=== PATIENT | male | born 1955 | race African-American/Black ===

== ENCOUNTER 2020-01-07 12:00 | Inpatient (IN) | payer MEDICARE, SELFPAY ==
[2020-01-07] VITALS (36 sets, daily range): BP systolic 91–234; BP diastolic 57–172; PULSE 88–121; RESP 17–37; TEMP 37.9–39.6; O2SAT 91–99; BMI 31.4
--- NOTE | ~2020-01-07 | XR_ITS ---
XR chest 2V DATE: 01/11/2020 11:44 INDICATION: Dyspnea. Coughing up pancreas from left. TECHNIQUE: AP and lateral views COMPARISON: 01/09/2020 portable upright AP chest FINDINGS: Again noted is thoracic aortic endovascular graft, unchanged in appearance compared to 01/08. Rather diffuse patchy left lung infiltrate is noted, particularly in the mid and upper lung zones. Ri ght lung appears essentially clear. No pleural effusion or pulmonary vascular congestion or pneumotho rax is evident. IMPRESSION: Left sided infiltrate, relatively stable since 01/09/2020 Reviewed, dictated and finalized at location A.
--- NOTE | ~2020-01-07 | US_ITS ---
EXAMINATION:US venous doppler LE BI INDICATION:Shortness of breath. TECHNIQUE: Multiple grayscale, color flow and Doppler images of the lower extremity deep venous syste ms were obtained and reviewed. COMPARISON:No prior studies for comparison. FINDINGS: The common femoral, superficial femoral and popliteal veins demonstrate normal respiratory variation, augmentation and compressibility. Color flow is also seen within the posterior tibial, pe roneal, greater saphenous and profunda veins. IMPRESSION: 1: No lower extremity deep venous thrombosis. Reviewed, dictated and finalized at location A.
--- NOTE | ~2020-01-07 | XR_ITS ---
EXAMINATION: XR chest 1V portable INDICATION: Shortness of breath TECHNIQUE: Portable AP chest at 1245 hours COMPARISON: None available FINDINGS: There are airspace opacities of the left upper lung zone. Cardiomegaly is noted. There is a n endovascular stent in the thoracic aorta. No pleural effusion or pneumothorax is identified. IMPRESSION: 1. Left upper lobe airspace opacities, likely pneumonia. Recommend followup radiographs in 10-14 days after appropriate therapy to evaluate for improvement/resolution. Reviewed, dictated and finalized at location A. IMPRESSION: 1. Left upper lobe airspace opacities, likely pneumonia. Recommend followup rad iographs in 10-14 days after appropriate therapy to evaluate for improvement/re solution.
--- NOTE | ~2020-01-07 | NM_ITS ---
EXAMINATION: NM pulmonary perfusion DATE: 01/08/2020 15:56 INDICATION: Shortness of breath, elevated d-dimer TECHNIQUE: 5.11 mCi Tc-99m MAA was administered intravenously for perfusion images. Ventilation imagi ng was not performed due per ACR guidelines during the COVID-19 pandemic. Scintigraphic images of the chest were obtained. COMPARISON: Chest radiograph from yesterday FINDINGS: Perfusion images show a perfusion defect in the left upper lobe corresponding to airspace opacity on the comparison radiograph. ] IMPRESSION: 1. Low probability for pulmonary embolism. Reviewed, dictated and finalized at location A.
--- NOTE | ~2020-01-07 | US_ITS ---
US renal BI 01/08/2020 12:46 Procedure: Realtime transabdominal ultrasound of the kidneys and bladder. Indication: Acute renal insufficiency Comparison: No prior studies for comparison. Findings: Renal echotexture is normal bilaterally without hydronephrosis or renal calculus. There are multiple bilateral renal cysts. Largest on the right measures 6.6 cm and on the left 4.8 cm. The rig ht kidney measures 14.1 cm and left kidney measures 9.3 cm. Bladder within normal limits, although n ot well distended. Impression: 1: Bilateral renal cysts. Reviewed, dictated and finalized at location A. Impression: 1: Bilateral renal cysts.
--- NOTE | ~2020-01-07 | XR_ITS ---
EXAMINATION: XR chest 1V portable EXAM DATE: 01/09/2020 05:48 INDICATION: Pneumonia. TECHNIQUE: Portable AP frontal chest x-ray was obtained. Comparison is made to prior examination from 01/07/2020. FINDINGS: There is been interval progression in left-sided airspace disease with upper lobe predomina nce. Probable development of mild right perihilar acute airspace disease as well. Most likely infecti on given distribution. Cardiac silhouette is enlarged but stable in size compared to prior exam. Ther e is aortic endograft. IMPRESSION: 1. Some progression in now bilateral but left upper lobe predominant acute airspace disease most lik cleopatra infection. Reviewed, dictated and finalized at location A. IMPRESSION: 1. Some progression in now bilateral but left upper lobe predominant acute air space disease most likely infection.
[2020-01-07 12:38] LABS: Basophils Percent Auto 0.1 % (0.2-1.2); Hematocrit 40.2 % (42.0-52.0); Hemoglobin 12.4 g/dL (14.0-18.0); Immature Granulocyte Absolute 0.04 K/mm3 (0.00-0.031); Immature Granulocyte Percent A 0.5 % (0-0.5); Lymphocytes Absolute Auto 0.58 K/mm3 (0.9-3.2); Lymphocytes Percent Auto 6.7 % (18.3-44.2); Mean Corpuscular HGB Conc 30.8 g/dl (32-36); Mean Corpuscular Hemoglobin 28.4 pg (26-34); Mean Corpuscular Volume 92.2 fl (80-100); Mean Platelet Volume 12.4 fl (7.4-10.4); Monocytes Absolute Auto 0.8 K/mm3 (0.1-0.6); Monocytes Percent Auto 9.1 % (2.6-8.5); Neutrophils Absolute Auto 7.2 K/mm3 (1.3-6.7); Neutrophils Percent Auto 83.6 % (45.5-73.1); Platelet Count Result 124 k/mm3 (150-375); Red Blood Count 4.36 M/mm3 (4.6-6.20); Red Cell Distribution Width 13.2 % (11.5-14.5); White Blood Count 8.7 K/mm3 (4.5-10.0)
[2020-01-07 12:49] LABS: INR 1.2; Prothrombin Time 14.4 Seconds (11.1-14.7)
[2020-01-07 12:51] LABS: Blood Urea Nitrogen 29 mg/dL (9-20); Calcium 9.1 mg/dL (8.4-10.2); Carbon Dioxide 24 mmol/L (22-30); Chloride 100 mmol/L (98-107); Estimated CRCL calculation 26 ml/min; Estimated Glomerular Filt Rate 22; Glucose 130 mg/dL (75-110); Potassium 4.8 mmol/L (3.4-5.0); Sodium 133 mmol/L (137-145)
[2020-01-07 13:00] LABS: NT Pro B Type Natriuretic Pept 1180 PG/ML (5-100)
[2020-01-07 13:07] LABS: Troponin I 0.041 ng/mL (0.000-0.034)
--- NOTE | 2020-01-07 13:49 | ECG_ITS ---
Measurements Intervals [place] Rate: 104 P: -17 GA: 188 QRS: 50 QRSD: 86 T: 86 QT: 291 QTc: 384 Interpretive Statements SINUS TACHYCARDIA FREQUENT VENTRICULAR PREMATURE COMPLEXES BORDERLINE R WAVE PROGRESSION, ANTERIOR LEADS BORDERLINE ST-T WAVE ABNORMALITY- LATERAL LEADS ABNORMAL ECG Electronically Signed On 01-07-2020 13:55:23 CDT by Rajiv Castro D.O.
--- NOTE | 2020-01-07 14:20 | ED.SOB ---
HPI - SOB/Dyspnea General Chief Complaint: Shortness of Breath/Dyspnea Stated Complaint: SOB Time Seen by Provider: 01/07/20 12:01 Source: patient Mode of arrival: ambulatory Limitations: no limitations History of Present Illness MD elicited complaint: shortness of breath Pertinent past history: diabetes Severity: mild Exacerbating factors: nothing Known history of: congestive heart failure and diabetes Related Data Home Medications Medication Instructions Recorded Confirmed Adult Low Dose Aspirin 81 mg PO DAILY 01/07/20 01/07/20 Vitamin D3 1,000 units PO DAILY 01/07/20 01/07/20 carvedilol 25 mg PO DAILY 01/07/20 01/07/20 hydrochlorothiazide 25 mg PO DAILY 01/07/20 01/07/20 lisinopril 10 mg PO DAILY 01/07/20 01/07/20 Allergies Allergy/AdvReac Type Severity Reaction Status Date / Time No Known Allergies Allergy Verified 01/07/20 12:27 Review of Systems Review of Systems: All systems reviewed & are unremarkable except as noted in HPI and below Constitutional: Constitutional: Reports no additional constitutional complaints Eyes: Eyes: Reports no additional eye complaints ENT: Reports system reviewed and no additional complaints, except as documented Cardiovascular: Cardiovascular: Reports no additional cardiovascular complaints Respiratory: Respiratory: Reports as per HPI Musculoskeletal: Musculoskeletal: Reports no additional musculoskeletal complaints Neurologic: Reports system reviewed and no additional complaints, except as documented Psychiatric: Psychiatric: Reports no additional psychiatric complaints Endocrine: Endocrine: Reports no additional endocrine complaints [facility] Social History Social History Gender identity (if verbalized by the patient): Male Exam Const: General: no acute distress and alert Orientation/consciousness: patient oriented x3 HENMT: Head: normal to inspection Eyes: Pupils: Equal, round and reactive pupils present Neck: Neck: normal visual inspection Chest: Chest palpation & inspection: normal inspection of the chest Resp: Effort & Inspection: normal respiratory effort GI: GI Palp: Yes Soft to palpation Skin: General skin exam: normal color Neuro: General: patient oriented x3 and moves all extremities Course Course Emergency Course: informed pt about his lab work, i discused with Dr. Lorenz can be discharged to home and follow up in the office.as pt is symptomatic we will admit him to the hospital. Vital Signs Vital signs: Vital Signs Temperature 39.6 C H 01/07/20 12:19 Pulse Rate 110 H 01/07/20 12:19 Respiratory Rate 25 H 01/07/20 12:19 Blood Pressure 106/81 01/07/20 12:19 Pulse Oximetry 97 01/07/20 12:19 Temperature 39.6 C H 01/07/20 12:19 Pulse Rate 98 01/07/20 13:16 Respiratory Rate 26 H 01/07/20 13:16 Blood Pressure 103/69 01/07/20 13:16 Pulse Oximetry 97 01/07/20 13:16 MDM - SOB/Dyspnea Lab Data Result diagrams: 01/07/20 12:32 01/07/20 12:32 Labs: Lab Results 01/07/20 01/07/20 01/07/20 Range/Units 12:32 12:32 12:32 WBC 8.7 (4.5-10.0) K/mm3 RBC 4.36 L (4.6-6.20) M/mm3 Hgb 12.4 L (14.0-18.0) g/dL Hct 40.2 L (42.0-52.0) % MCV 92.2 (80-100) fl MCH 28.4 (26-34) pg MCHC 30.8 L (32-36) g/dl RDW 13.2 (11.5-14.5) % Plt Count 124 L (150-375) k/mm3 MPV 12.4 H (7.4-10.4) fl Immature Gran % (Auto) 0.5 (0-0.5) % Neut % (Auto) 83.6 H (45.5-73.1) % Lymph % (Auto) 6.7 L (18.3-44.2) % Hopkins % (Auto) 9.1 H (2.6-8.5) % Eos % (Auto) 0.0 (0-4.4) % Baso % (Auto) 0.1 L (0.2-1.2) % Lymph # (Auto) 0.58 L (0.9-3.2) K/mm3 Hopkins # (Auto) 0.8 H (0.1-0.6) K/mm3 Eos # (Auto) 0.0 (0-0.3) K/mm3 Baso # (Auto) 0.0 (0.0-0.1) K/mm3 Abs Immat Gran (auto) 0.04 H (0.00-0.031) K/mm3 Absolute Neuts (auto) 7.2 H (1.3-6.7) K/mm3 Absolute Nucleated RBC 0.0 (0.0-0.012) K/mm3 Nucleated RBC
--- NOTE | 2020-01-07 18:46 | ADMGEN ---
This patient, Jude Vasquez Jr., was admitted to Intensive Care Unit-6. Patient/family oriented to hospital policies and general routines including ID bracelet, bed and alarms, visiting hours, pain management, procedures, bathroom and other care routines, personal items, smoking policy, room service/diet, and visiting hours. Valuables list has been completed. Information on how to activate the Rapid Response Team has been discussed. Patient/Family are encouraged to report perceived risks to care and to ask questions if they do not understand what they are told or what they should do.
[2020-01-07] MEDS: ACETAMINOPHEN 325 MG TABLET 650 MG PO (19:57)
--- NOTE | 2020-01-07 20:45 | PM.IMHP ---
H&P: HPI History of Present Illness Chief complaint: Shortness of breath, cough, fever. <Evelia Jiménez PA-C - Last Filed: 01/07/20 23:34> Narrative: Jude Vasquez Jr. is a 64-year-old male with hypertension, chronic kidney disease, anemia, and sleep apnea who presented to the emergency department earlier this afternoon from home for evaluation of shortness of breath, cough, and fever. He has been gradually feeling unwell for the past couple of days including shortness of breath, mainly with activity, cough occasionally productive of pink tinged sputum, nausea, loose stools, myalgias and arthralgias, and fever up to 103? yesterday. He also had some mild chest tightness when feeling short of breath, but that was fleeting and has not returned. He has been taking Tylenol, which does help somewhat. He denies sick contacts and recent travel. He and his have been sheltering in place for the past several weeks, but he does go out to visit his mother on occasion. He denies headache, neck ache, rash, chest pain, pleuritic pain, palpitations, vomiting, and dysuria. No anosmia or dysgeusia. <Evelia Jiménez PA-C - Last Filed: 01/07/20 23:34> Review of Systems Review of Systems: Narrative: Twelve systems were reviewed with pertinent positives and negatives as per HPI. Except as documented, all other systems were reviewed and are negative. <Evelia Jiménez PA-C - Last Filed: 01/07/20 23:34> [facility] Past Medical History Medical History: Medical History (Updated 01/07/20 @ 23:26 by Evelia Jiménez PA-C) Chronic kidney disease, stage 4, severely decreased GFR Patient of Dr. Dixon. Baseline creatinine unknown to the patient. Depression with anxiety Essential hypertension Obstructive sleep apnea treated with BiPAP Posttraumatic stress disorder Thoracic aortic dissection Two thousand five. <Evelia Jiménez PA-C - Last Filed: 01/07/20 23:34> Surgical History Surgical History: Surgical History (Updated 01/07/20 @ 23:23 by Evelia Jiménez PA-C) History of inguinal herniorrhaphy History of thoracic aortic aneurysm repair In 2004. <Evelia Jiménez PA-C - Last Filed: 01/07/20 23:34> Family History Family History: Family History (Updated 01/07/20 @ 23:23 by Evelia Jiménez PA-C) Other Hypertension <Evelia Jiménez PA-C - Last Filed: 01/07/20 23:34> Social History Social History: Social History (Updated 01/07/20 @ 23:24 by Evelia Jiménez PA-C) Social History: Surrogate decision maker: Lizeth Rodriguez, sister. Code status: Full code. Smoking status: Never smoker Alcohol intake: never Substance use: never Additional living arrangements comments: Lives with older sister in [place]. 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 Gender identity (if verbalized by the patient): Male Spiritual care concerns: No Agree to blood products: No <Evelia Jiménez PA-C - Last Filed: 01/07/20 23:34> Meds Home Medications and Allergies Home medications: Home Medications Medication Instructions Recorded Confirmed Type aspirin [Aspirin Low Dose] 81 mg PO DAILY 01/07/20 01/07/20 History carvedilol [Coreg] 25 mg PO Q12H 01/07/20 01/07/20 History cholecalciferol (vitamin D3) 25 mcg PO DAILY 01/07/20 01/07/20 History hydrochlorothiazide 25 mg PO DAILY 01/07/20 01/07/20 History lisinopril 10 mg PO DAILY 01/07/20 01/07/20 History <Evelia Jiménez PA-C - Last Filed: 01/07/20 23:34> Allergies/Adverse reactions: Allergies Allergy/AdvReac Type Severity Reaction Status Date / Time No Known Allergies Allergy Verified 01/07/20 12:27 <Evelia Jiménez PA-C - Last Filed: 01/07/20 23:34> Vital Signs Vital Signs - 24 hr 01/07/20 12:19 01/07/20 12:26 01/07/20 12:41 Temperature 103.3 F H Pulse Rate 110 H 110 H 108 H Respiratory Rate 25 H 25 H Blood Pressure 106/81 Pulse Oximet
[2020-01-07 21:50] LABS: Hemoglobin A1C 5.9 % (<5.7)
[2020-01-07 22:00] LABS: Alanine Aminotransferase 16 U/L (4-50); Alkaline Phosphatase 74 U/L (38-126); Aspartate Amino Transferase 45 U/L (17-59); Bilirubin,Total 0.9 mg/dL (0.2-1.3); Blood Urea Nitrogen 34 mg/dL (9-20); Calcium 8.7 mg/dL (8.4-10.2); Carbon Dioxide 20 mmol/L (22-30); Chloride 101 mmol/L (98-107); Estimated CRCL calculation 25 ml/min; Estimated Glomerular Filt Rate 21; Glucose 134 mg/dL (75-110); Lactate Dehydrogenase 575 U/L (313-618); Magnesium 1.2 mg/dL (1.6-2.3); Potassium 4.7 mmol/L (3.4-5.0); Sodium 133 mmol/L (137-145)
[2020-01-07 22:09] LABS: Troponin I 0.054 ng/mL (0.000-0.034)
[2020-01-07 22:19] LABS: CRP 33.4 mg/dL (<1.0)
[2020-01-08] VITALS (19 sets, daily range): BP systolic 93–165; BP diastolic 41–85; PULSE 80–115; RESP 14–26; TEMP 37.1–38; O2SAT 93–99
[2020-01-08] MEDS: MAGNESIUM SULF 2 GM/WATER 50ML 2 GM/50 ML BAG IVPB (00:10)
[2020-01-08] MEDS: carvediloL 25 MG TABLET PO ×3 (00:10→21:15)
[2020-01-08] MEDS: SODIUM CHLORIDE 0.9% IV 1,000 ML 100 ML IV CONT ×3 (00:11→23:01)
[2020-01-08 01:04] LABS: Influenza Control Positive
[2020-01-08] MEDS: ACETAMINOPHEN 325 MG TABLET 650 MG PO ×3 (02:03→21:16)
[2020-01-08] MEDS: ONDANSETRON INJ 4 MG/2 ML VIAL IV PUSH (02:31)
--- NOTE | 2020-01-08 03:15 | PCRCNOTE ---
non-invasive was not placed in the patient's room at this time.
[2020-01-08 06:14] LABS: Basophils Percent Auto 0.1 % (0.2-1.2); Hematocrit 37.6 % (42.0-52.0); Hemoglobin 11.6 g/dL (14.0-18.0); Immature Granulocyte Absolute 0.07 K/mm3 (0.00-0.031); Immature Granulocyte Percent A 0.7 % (0-0.5); Lymphocytes Absolute Auto 0.51 K/mm3 (0.9-3.2); Lymphocytes Percent Auto 4.9 % (18.3-44.2); Mean Corpuscular HGB Conc 30.9 g/dl (32-36); Mean Corpuscular Hemoglobin 28.2 pg (26-34); Mean Corpuscular Volume 91.5 fl (80-100); Mean Platelet Volume 12.3 fl (7.4-10.4); Monocytes Absolute Auto 0.9 K/mm3 (0.1-0.6); Monocytes Percent Auto 8.5 % (2.6-8.5); Neutrophils Percent Auto 85.8 % (45.5-73.1); Platelet Count Result 115 k/mm3 (150-375); Red Blood Count 4.11 M/mm3 (4.6-6.20); Red Cell Distribution Width 13.3 % (11.5-14.5); White Blood Count 10.5 K/mm3 (4.5-10.0)
[2020-01-08 06:27] LABS: Alanine Aminotransferase 18 U/L (4-50); Alkaline Phosphatase 71 U/L (38-126); Aspartate Amino Transferase 59 U/L (17-59); Bilirubin,Total 0.7 mg/dL (0.2-1.3); Blood Urea Nitrogen 38 mg/dL (9-20); Calcium 8.8 mg/dL (8.4-10.2); Carbon Dioxide 23 mmol/L (22-30); Chloride 100 mmol/L (98-107); Estimated CRCL calculation 25 ml/min; Estimated Glomerular Filt Rate 18; Glucose 127 mg/dL (75-110); Magnesium 1.9 mg/dL (1.6-2.3); Potassium 4.8 mmol/L (3.4-5.0); Sodium 134 mmol/L (137-145)
[2020-01-08] MEDS: HEPARIN SODIUM 5,000 UNITS/ML VIAL 5000 UNITS SUB-Q ×2 (07:53→21:16)
[2020-01-08] MEDS: lisinopriL 10 MG TABLET PO (07:53)
[2020-01-08] MEDS: CHOLECALCIFEROL 1,000 UNIT TABLET 1000 UNITS PO (07:53)
[2020-01-08] MEDS: ASPIRIN 81 MG ENTERIC TABLET PO (07:53)
[2020-01-08 08:02] LABS: Glucose Point of Care 117 (65-105)
[2020-01-08 09:35] LABS: D Dimer 3.96 ug/mL (<0.48)
[2020-01-08 09:53] LABS: Lactate Dehydrogenase 553 U/L (313-618)
[2020-01-08 11:33] LABS: Glucose Point of Care 122 (65-105)
[2020-01-08 13:30] LABS: SARS-CoV-2 RNA PCR Negative
--- NOTE | 2020-01-08 13:50 | PM.CNNEP ---
Assessment and Plan Assessment and plan (1) YOLI (acute kidney injury): Code(s): N17.9 - Acute kidney failure, unspecified Status: Acute (2) Chronic kidney disease, stage IV (severe): Code(s): N18.4 - Chronic kidney disease, stage 4 (severe) Status: Acute (3) Hyponatremia: Code(s): E87.1 - Hypo-osmolality and hyponatremia Status: Acute (4) Community acquired pneumonia: Qualifiers: Laterality: left Lung location: upper lobe of lung Qualified Code(s): J18.9 - Pneumonia, unspecified organism Code(s): J18.9 - Pneumonia, unspecified organism Status: Acute (5) Essential hypertension: Code(s): I10 - Essential (primary) hypertension Status: Acute (6) Obstructive sleep apnea treated with BiPAP: Code(s): G47.33 - Obstructive sleep apnea (adult) (pediatric) Status: Acute Additional Plan Jude has known chronic kidney disease but his kidney function appears to be doing somewhat worse both on admission and by current testing today. One could argue that his admission creatinine may be more a manifestation of disease progression but I cannot deny the fact that given his acute illness, his kidney function could just be worse because of that. In spite of his elevated creatinine, he has no critical electrolyte abnormalities and his volume status appears to be relatively stable. Working on the assumption that this is acute insult on his baseline kidney disease, his high fevers and associated insensible losses coupled with the possibility of covert 19 infection as well as his pneumonia as evidenced by his chest x-ray could of all led to his elevated creatinine/ acute kidney injury. his continued use of hydrochlorothiazide as well as lisinopril may have also potentiated/worsened his kidney function as well. For further evaluation of his acute kidney injury and baseline kidney disease, I will check a renal ultrasound, urine electrolytes, urine eosinophils, and follow the trend of his repeat labs and urine output on the hope that his kidney function will improve with current interventions. I discussed with the patient that given his kidney disease at baseline, it is very possible that his kidney function could worsen to the point may he where he may require renal replacement therapy/dialysis as a temporary measure if not possibly as a long-term intervention pending on his hospital course and other mitigating factors. I will continue follow the patient with you while remains hospitalized make further recommendations during his hospital course. Thank you for allowing me to participate in the care of this patient. History of Present Illness Reason for Consult Consult date: 01/09/20 Reason for consult: acute renal failure (on chronic kidney disease) Chief Complaint Chief complaint: Shortness of breath, cough, fever. History of Present Illness Narrative: The patient is a 64-year-old male with a past medical history as outlined below who presented to the [facility] ER with complaints of shortness of breath, cough, and fever. The patient states that he has been gradually feeling well for the past several days. He relates shortness of breath with exertional activities, productive cough along with nausea, loose stools, myalgias and arthralgias, and fever up to 103? yesterday. He also had some mild chest tightness as well but apparently occurred just one time. He has been taking Tylenol which has helped to some degree. He denies headache, chest pain, pleuritic pain, palpitations, vomiting, and dysuria. It should be noted that he did see his primary care physician for the symptoms as well with concern for possible COVID-19 infection. Workup and evaluation in the emergency room demonstrated the patient to be hemodynamically stable with routine blood test demonstrating essentially a normal CBC and a comprehensive metabolic panel demonstrated an elevated BUN and
--- NOTE | 2020-01-08 14:25 | PC.NURSE ---
This patient, Jude Bustillo ., was received from [ICU-6] on 01/08/20 at 1425. REPORT RECEIVED FROM RENUKA LARSON. Personal belongings list checked and signed. Patient/family oriented to unit policies and routines
[2020-01-08 14:57] LABS: Creatinine Urine 230.8 mg/dL; Total Protein Urine Random 79 mg/dL
[2020-01-08 15:14] LABS: Sodium Urine Random 51 meq/L
[2020-01-08 16:40] LABS: Glucose Point of Care 112 (65-105)
--- NOTE | 2020-01-08 16:53 | PM.IMPN ---
Progress Note: A&P Assessment and Plan (1) Left upper lobe pneumonia: Code(s): J18.9 - Pneumonia, unspecified organism Status: Acute Assessment and Plan: He has been started on azithromycin and ceftriaxone for community-acquired pneumonia. Sputum to be attempted for culture. Send specimens for urinary antigens. Albuterol MDI q.6 hours as needed. Collect swab to rule out influenza and COVID-19. 01/08/20 16:53 Patient is 64-year-old male with history of hypertension chronic kidney disease moderately obesity had been feeling unwell for last 1 week the cough shortness of breath fever and chills with a temperature of 103?, patient denies any sick contact as he had been home with his and occasionally visiting his elderly mother, there was a concern the patient may be positive COVID-19 and test was ordered, he is being treated for the community-acquired pneumonia with Rocephin azithromycin, I saw the patient outside his room and spoke with him on the telephone, he denies any cough shortness of breath chest pain or palpitation currently, denies any fever or chills, (2) Elevated troponin level: Code(s): R79.89 - Other specified abnormal findings of blood chemistry Status: Acute Assessment and Plan: Patient did complain of chest tightness, but may be related to above. Given his medical history, will continue to trend troponins. Will hold on Cardiology consultation, unless troponins elevate. Echocardiogram ordered. Tropes are mildly elevated most likely secondary to demand ischemia due to fever and shortness of breath unlikely acute coronary syndrome it present time patient denies any chest. (3) Hyponatremia: Code(s): E87.1 - Hypo-osmolality and hyponatremia Status: Acute Assessment and Plan: Mild hyponatremia with sodium of 133 on admission. Blood pressures are a bit low, arguing that he may be dehydrated. Will hold hydrochlorothiazide and cautiously rehydrate. Patient is clinically stable does not show any sinus symptoms of hyponatremia patient is seen by validation analyst further recommendation to follow (4) Essential hypertension: Code(s): I10 - Essential (primary) hypertension Status: Acute Assessment and Plan: Blood pressures were reviewed, and they have been running a bit soft. As above, hold hydrochlorothiazide. Continue carvedilol and lisinopril, with parameters. (5) Obstructive sleep apnea treated with BiPAP: Code(s): G47.33 - Obstructive sleep apnea (adult) (pediatric) Status: Acute Assessment and Plan: BiPAP ordered. (6) Chronic kidney disease, stage 4, severely decreased GFR: Code(s): N18.4 - Chronic kidney disease, stage 4 (severe) Status: Acute Assessment and Plan: Reports history of stage 4 kidney disease, with unknown baseline creatinine. Obtain records for review, and monitor. Monitor strict I/O. Patient with history of chronic kidney disease stage IV discussed with validation analyst further workup is in progress (7) Elevated d-dimer: Code(s): R79.89 - Other specified abnormal findings of blood chemistry Status: Acute Assessment and Plan: Patient with complaint of shortness of breath with elevated D-dimer unable to do CTA of the chest, ventilation/ perfusion scan shows low probability lower extremity Doppler are negative for DVT, most likely related to chronic kidney disease and inflammation patient is clinically stable Subjective Date/time seen: 01/08/20 16:53 Patient is 64-year-old male with history of hypertension chronic kidney disease moderately obesity had been feeling unwell for last 1 week the cough shortness of breath fever and chills with a temperature of 103?, patient denies any sick contact as he had been home with his and occasionally visiting his elderly mother, there was a concern the patient may be positive COVID-19 and test was ordered,
[2020-01-08 20:13] LABS: Glucose Point of Care 127 (65-105)
--- NOTE | 2020-01-08 23:27 | ECHO_ITS ---
Patient Info Name: Jude Vasquez Age: 64 years : 1955 Gender: Male Ht: 74 in Wt: 244 lbs BSA: 2.43 m2 HR: 72 bpm BP: 95 / 68 mmHg Technical Quality: Fair Exam Date: 01/08/2020 9:46 AM Exam Location: [facility] Pulmonary Patient Status: Inpatient Admit Date: 01/07/2020 Staff Ordering Physician: Evelia Jiménez PA-C [employer] Dba: Foster Aponte RDCS, RT Attending Provider: Alli Hicks MD Referring Physician: Jessy PERRY; Exam Type: CA echo doppler color flow Study Info Indications R07.1 - Chest pain on breathing Complete two-dimensional, color flow and Doppler transthoracic echocardiogram is performed. Summary 1. Left ventricular chamber dimension is mildly enlarged. 2. Left ventricular systolic function is normal, estimated at 60-65%. 3. There is mildly increased left ventricular wall thickness. 4. The left ventricular diastolic function is abnormal. 5. E/e' 13 is mildly elevated. 6. Left atrial chamber dimension is mildly enlarged. 7. The mitral valve has moderately calcified annulus. 8. The aortic root size at the sinus of Valsalva is mildly dilated at 4.3 cm. Left Ventricle E/e' 13 is mildly elevated. Left ventricular chamber dimension is mildly enlarged. Left ventricular systolic function is normal, estimated at 60-65%. There is mildly increased left ventricular wall thickness. The left ventricular diastolic function is abnormal. Right Ventricle Right ventricular chamber dimension is normal. Right ventricular systolic function is normal. Left Atria Left atrial chamber dimension is mildly enlarged. Right Atria Right atrial chamber dimension is normal. Aortic Valve The aortic valve is trileaflet. There is no aortic valve stenosis. There is no aortic valve regurgitation. Pulmonic Valve There is no pulmonic regurgitation. Mitral Valve The mitral valve has moderately calcified annulus. There is no mitral valve stenosis. There is no mitral valve regurgitation. Tricuspid Valve There is no tricuspid valve regurgitation. Pericardium/Pleural There is no pericardial effusion. Inferior Vena Cava Normal inferior vena cava with >50% collapse upon inspiration consistent with normal right atrial pressure, 5 mmHg. Aorta The aortic root size at the sinus of Valsalva is mildly dilated at 4.3 cm. Left Ventricular Outflow Tract Name Value Normal LVOT 2D LVOT Diameter 2.1 cm LVOT Doppler LVOT Peak Gradient 5 mmHg LVOT Mean Gradient 2 mmHg LVOT VTI 19 cm LVOT VTI/AV VTI Ratio 0.8 LVOT Stroke Volume 66 ml LVOT CO 5.8 l/min LVOT CI 2.4 l/min/m2 Mitral Valve Name Value Normal MV Doppler MV Decel
[2020-01-09] VITALS (16 sets, daily range): BP systolic 85–140; BP diastolic 43–88; PULSE 48–102; RESP 20–28; TEMP 36.4–38.1; O2SAT 92–98
[2020-01-09 04:55] LABS: Basophils Percent Auto 0.2 % (0.2-1.2); Hematocrit 34.8 % (42.0-52.0); Hemoglobin 10.5 g/dL (14.0-18.0); Immature Granulocyte Absolute 0.03 K/mm3 (0.00-0.031); Immature Granulocyte Percent A 0.5 % (0-0.5); Lymphocytes Absolute Auto 0.44 K/mm3 (0.9-3.2); Lymphocytes Percent Auto 7.2 % (18.3-44.2); Mean Corpuscular HGB Conc 30.2 g/dl (32-36); Mean Corpuscular Hemoglobin 28.3 pg (26-34); Mean Corpuscular Volume 93.8 fl (80-100); Mean Platelet Volume 12.1 fl (7.4-10.4); Monocytes Absolute Auto 0.7 K/mm3 (0.1-0.6); Monocytes Percent Auto 11.2 % (2.6-8.5); Neutrophils Absolute Auto 4.9 K/mm3 (1.3-6.7); Neutrophils Percent Auto 80.9 % (45.5-73.1); Platelet Count Result 105 k/mm3 (150-375); Red Blood Count 3.71 M/mm3 (4.6-6.20); Red Cell Distribution Width 13.4 % (11.5-14.5); White Blood Count 6.1 K/mm3 (4.5-10.0)
[2020-01-09 05:13] LABS: Alanine Aminotransferase 27 U/L (4-50); Albumin Level 3.4 g/dL (3.5-5.1); Alkaline Phosphatase 61 U/L (38-126); Aspartate Amino Transferase 81 U/L (17-59); Bilirubin,Total 0.7 mg/dL (0.2-1.3); Blood Urea Nitrogen 45 mg/dL (9-20); Carbon Dioxide 24 mmol/L (22-30); Chloride 99 mmol/L (98-107); Estimated CRCL calculation 22 ml/min; Estimated Glomerular Filt Rate 15; Glucose 98 mg/dL (75-110); Potassium 4.4 mmol/L (3.4-5.0); Sodium 135 mmol/L (137-145)
[2020-01-09 05:17] LABS: Complement C3 113 mg/dL (88-165)
[2020-01-09 06:12] LABS: Hepatitis B Surface Antigen Negative (Negative)
[2020-01-09 06:18] LABS: HAV RESULT Negative (Negative); Hepatitis B Core IgM Result Negative (Negative)
[2020-01-09 06:29] LABS: Hepatitis B Surface Anti Res Negative; Hepatitis C Virus Antibody Negative (Negative)
[2020-01-09] MEDS: carvediloL 25 MG TABLET PO ×2 (08:26→21:49)
[2020-01-09] MEDS: lisinopriL 10 MG TABLET PO (08:26)
[2020-01-09] MEDS: CHOLECALCIFEROL 1,000 UNIT TABLET 1000 UNITS PO (08:26)
[2020-01-09] MEDS: ASPIRIN 81 MG ENTERIC TABLET PO (08:26)
[2020-01-09] MEDS: HEPARIN SODIUM 5,000 UNITS/ML VIAL 5000 UNITS SUB-Q ×2 (08:27→21:49)
[2020-01-09 08:43] LABS: Glucose Point of Care 103 (65-105)
--- NOTE | 2020-01-09 10:01 | PM.IMPN ---
Progress Note: A&P Assessment and Plan (1) Left upper lobe pneumonia: Qualifiers: Pneumonia type: due to unspecified organism Qualified Code(s): J18.9 - Pneumonia, unspecified organism Code(s): J18.9 - Pneumonia, unspecified organism Status: Acute Assessment and Plan: Continue ceftriaxone and azithromycin day 2 COVID-19 rt-PCR NEGATIVE 01/08 Oxygen 1 LPM by NC 01/08 to medical floor (2) Elevated troponin level: Code(s): R79.89 - Other specified abnormal findings of blood chemistry Status: Acute Assessment and Plan: Likely due to pneumonia Flat response Echo with EF 60-65% w/o wall motion abnormalities (3) Hyponatremia: Code(s): E87.1 - Hypo-osmolality and hyponatremia Status: Acute Assessment and Plan: 01/06 133 --> 01/08 135 Holding HCTZ 01/08 d/c IVF (4) Essential hypertension: Code(s): I10 - Essential (primary) hypertension Status: Acute Assessment and Plan: Continue carvedilol and lisinopril (5) Obstructive sleep apnea treated with BiPAP: Code(s): G47.33 - Obstructive sleep apnea (adult) (pediatric) Status: Acute Assessment and Plan: BiPAP while sleeping (6) Chronic kidney disease, stage 4, severely decreased GFR: Code(s): N18.4 - Chronic kidney disease, stage 4 (severe) Status: Acute Assessment and Plan: Creatinine 01/06 3.4 --> 01/08 4.7 Likely due to infection, possible volume depletion at admission F/u lab (7) Elevated d-dimer: Code(s): R79.89 - Other specified abnormal findings of blood chemistry Status: Acute Assessment and Plan: Negative LE venous dopplers Low probability V/Q scan Subjective Date/time seen: 01/09/20 10:01 Interval history: Admitted 01/06 with pneumonia and hypoxia. 01/08 No sob at rest. OSCAR persists. Tolerating diet. Some loose stool. No bleeding. Denied pain. Denied edema. Denied c/o. Review of Systems Review of Systems: All systems reviewed & are unremarkable except as noted in HPI and below Exam Narrative: Exam Narrative: HEENT: EOMI, PERRL, sclerae nonicteric, pharyngeal mucosa pink and intact NECK: No JVD CHEST: Slightly course BS. Mildly tachypneic. HEART: NL S1/S2, regular, no murmur ABDOMEN: BS+, soft, nontender, no mass, no bruits EXTREMITIES: No cyanosis, edema, or clubbing NEUROLOGIC: CN intact and symmetric to inspection. MUSCULOSKELETAL: Tone and strength symmetric. PSYCH: Alert. Oriented to person, place, and time. Objective Data Vital Signs Vital Signs: Vital Signs - 24 hr 01/08/20 12:00 01/08/20 13:47 01/08/20 16:00 Temperature 99.3 F Pulse Rate 100 100 98 Respiratory Rate 26 H 14 Blood Pressure 147/85 H 127/41 L Pulse Oximetry 94 93 01/08/20 18:00 01/08/20 19:34 01/08/20 20:00 Temperature 98.7 F Pulse Rate 115 H 108 H 108 H Respiratory Rate 22 H 22 H Blood Pressure 165/79 H Pulse Oximetry 99 99 01/08/20 21:15 01/08/20 22:00 01/08/20 23:28 Temperature Pulse Rate 100 91 88 Respiratory Rate 18 Blood Pressure Pulse Oximetry 93 01/09/20 00:00 01/09/20 02:00 01/09/20 04:00 Temperature 97.5 F L 98.8 F Pulse Rate 82 80 83 Respiratory Rate 22 H 20 Blood Pressure 97/58 L 115/60 Pulse Oximetry 93 96 01/09/20 06:00 01/09/20 08:00 01/09/20 08:26 Temperature 99.3 F Pulse Rate 91 102 H 97 Respiratory Rate 20 Blood Pressure 105/88 Pulse Oximetry 96 01/09/20 09:53 Temperature 100.1 F H Pulse Rate Respiratory Rate Blood Pressure Pulse Oximetry Intake/Output Intake/Output: Intake & Output 01/06/20 01/07/20 01/08/20 01/09/20 23:59 23:59 23:59 23:59 Intake Total 50 3590 700 Output Total 1025 300 Balance 50 2565 400 Meds/Results Medications: Active Medications Generic Name Dose Route Start Last Admin Trade Name Freq PRN Reason Stop Dose Admin Acetaminophen 650 mg 01/07/20 15:1
--- NOTE | 2020-01-09 11:09 | PC.NURSE ---
Pt transferred to room 326 via WC. Bedside report given to kirby LARSON. Belongings sent with pt.
--- NOTE | 2020-01-09 11:12 | PM.PNNEP ---
Progress Note: A&P Assessment and Plan (1) YOLI (acute kidney injury): Code(s): N17.9 - Acute kidney failure, unspecified Status: Acute Assessment and Plan: suspect due to: - acute infection (pneumonia) - prerenal factors -- urine electrolytes suggest volume depletion -- insensible losses from high fevers - ongoing use of BRITTNEE-I + HCTZ prior to admission renal ultrasound with kidney assymetry and bilateral cysts - component/degree of acquired cystic kidney(?) still making urine and no critical electroltyes continue supportive therapy (2) Chronic kidney disease, stage IV (severe): Code(s): N18.4 - Chronic kidney disease, stage 4 (severe) Status: Chronic Assessment and Plan: baseline creatinine ~ 2.5 - 2.8mg/dl presumably due to diabetes, hypertension, IRINA, and age follow-up on pending serologies (3) Hyponatremia: Code(s): E87.1 - Hypo-osmolality and hyponatremia Status: Acute Assessment and Plan: resolving probably due to volume depletion on top of YOLI/ARF follow trend of sodium (4) Community acquired pneumonia: Qualifiers: Laterality: left Lung location: upper lobe of lung Qualified Code(s): J18.9 - Pneumonia, unspecified organism Code(s): J18.9 - Pneumonia, unspecified organism Status: Acute Assessment and Plan: on antibiotics follow culture data and temperature curve (5) Essential hypertension: Code(s): I10 - Essential (primary) hypertension Status: Acute Assessment and Plan: reasonable control holding BRITTNEE-I and HCTZ at this time follow trend of hemodynamics Will continue to follow. Subjective Date/time seen: 01/09/20 11:12 Moved out of isolation as COVID-19 testing negative; still making urine and creatinine still elevated; he otherwise feels significantly better since admission; no apparent distress voiced at the time of my visit. Exam Narrative: Exam Narrative: General: WD/WN AA male in NAD Heart: normal S1 and S2; no rub Lungs: clear to auscultation Abdomen: soft, nontender, nondistended, positive bowel sounds Extremities: no cyanosis or clubbing; no edema Skin: warm and dry Objective Data Vital Signs Vital Signs: Vital Signs Temp Pulse Resp BP Pulse Ox 01/09/20 09:53 37.8 C H 01/09/20 08:26 97 01/09/20 08:00 37.4 C 97 20 105/88 96 01/09/20 06:00 91 01/09/20 04:00 37.1 C 83 20 115/60 96 01/09/20 02:00 80 01/09/20 00:00 36.4 C L 82 22 H 97/58 L 93 01/08/20 23:28 88 18 93 01/08/20 22:00 91 01/08/20 21:15 100 01/08/20 20:00 108 H 22 H 99 01/08/20 19:34 37.1 C 108 H 22 H 165/79 H 99 01/08/20 18:00 115 H 01/08/20 16:00 37.4 C 98 14 127/41 L 93 01/08/20 13:47 100 01/08/20 12:00 100 26 H 147/85 H 94 Intake/Output Intake/Output: Intake & Output 01/06/20 01/07/20 01/08/20 01/09/20 23:59 23:59 23:59 23:59 Intake Total 50 3590 820 Output Total 1025 300 Balance 50 2565 520 Meds/Results Medications: Active Medications Generic Name Dose Route Start Last Admin Trade Name Freq PRN Reason Stop Dose Admin Acetaminophen 650 mg 01/07/20 15:19 01/08/20 21:16 Tylenol Tablet PO 650 mg Q4H PRN Administration Mild Pain (1-3) or Fever Albuterol 2 puff 01/07/20 23:27 Proventil Hfa INHALATION QIDRT PRN Shortness Of Breath Aspirin 81 mg 01/08/20 09:00 01/09/20 08:26 Aspirin Ec PO 81 mg DAILY CLARITZA Administration Carvedilol 25 mg 01/07/20 23:35 01/09/20 08:26 Coreg PO 25 mg Q12HR CLARITZA Administration Heparin Sodium (Porcine) 5,000 units 01/08/20 09:00 01/09/20 08:27 Heparin Sodium SUB-Q 5,000 units Q12HR CLARITZA Administration Azithromycin 500 mg in 250 mls @ 250 mls/hr 01/07/20 23:35 01/08/20 22:20 Zithromax IVPB Infused DAILY@2200 [facility] Infusion Ceftr
[2020-01-09] MEDS: ALBUTEROL SULFATE (*SP) AEROSOL 1 PUFF 2 PUFF INHALATION (11:16)
--- NOTE | 2020-01-09 11:43 | PC.NURSE ---
Took over pt care from IMU at 1100. Pt is resting comfortably in room 326.
[2020-01-09 12:03] LABS: Glucose Point of Care 125 (65-105)
[2020-01-09 14:50] LABS: Pneumococcal Antigen Urine Not Detected (Not Detected)
[2020-01-09 18:21] LABS: Glucose Point of Care 99 (65-105)
[2020-01-09 19:03] LABS: Glucose Point of Care 115 (65-105)
--- NOTE | 2020-01-09 19:08 | ECG_ITS ---
Measurements Intervals [place] Rate: 87 P: 25 DC: 191 QRS: 56 QRSD: 94 T: 89 QT: 331 QTc: 399 Interpretive Statements SINUS RHYTHM DELAYED PRECORDIAL R/S TRANSITION LOW VOLTAGE- LIMB LEADS BORDERLINE T WAVE ABNORMALITY- LATERAL LEADS BASELINE ARTIFACT- I, III, AVR, AVL, AVF, V1-V2 BORDERLINE ECG Electronically Signed On 01-11-2020 10:57:15 CDT by Rajiv Castro D.O.
--- NOTE | 2020-01-09 19:26 | PC.NURSE ---
Sharita and Cynthia were attempting to restart an IV (at 1900) as his previous had been pulled out when pt became less responsive, felt clammy, stating he felt very out of it. Pts VS were 85/57 left arm supine, 94% on 4L 02, 87 heart rate, resps 24, temp 100.4; blood sugar 115. ICU RNs responded along with Jacklyn. Stat EKG and ABGs ordered. No transfer ordered at this time. Pt began to come back to himself, stating he felt more normal. Fahad said he wanted results called to him or Yojana. Also ordered pt on CPAP after blood gasses drown.
[2020-01-09 19:39] LABS: Alveolar/Arterial O2 Gradient 122.9 mmHg; Base Excess ABG -4.1 mEq/l (+/-2.0); Fractional Inspired Oxygen 36 %; HCO3 ABG 21.1 mEq/l (22.0-26.0); Oxygen Content ABG 15.9 %vol (16.0-22.0); Oxygen Saturation ABG 96.4 % (95.0-100.0); Oxyhemoglobin 95.4 % THb (90.0-100.0); PCO2 ABG 39.2 mmHg (35.0-45.0); PO2 ABG 88.3 mmHg (80.0-100.0); PO2 FiO2 Ratio Arterial Blood 2.45 %; Total Hemoglobin 11.8 g/dL (12.0-18.0); pH ABG 7.349 (7.350-7.450)
[2020-01-09 19:40] LABS: Device NASAL CANNULA; Modified Allen's Test Pass; Site Drawn RIGHT RADIAL
--- NOTE | 2020-01-09 19:43 | PC.NURSE ---
Addendum to Rapid Response, 1909 BP was 120/60
[2020-01-09 22:09] LABS: Glucose Point of Care 94 (65-105)
[2020-01-10] VITALS (9 sets, daily range): BP systolic 112–140; BP diastolic 68–90; PULSE 66–80; RESP 20–26; TEMP 36.6–37.4; O2SAT 93–100
[2020-01-10 06:13] LABS: Basophils Percent Auto 0.2 % (0.2-1.2); Eosinophils Percent Auto 0.5 % (0-4.4); Hematocrit 33.9 % (42.0-52.0); Hemoglobin 10.3 g/dL (14.0-18.0); Immature Granulocyte Absolute 0.02 K/mm3 (0.00-0.031); Immature Granulocyte Percent A 0.5 % (0-0.5); Lymphocytes Percent Auto 12.4 % (18.3-44.2); Mean Corpuscular HGB Conc 30.4 g/dl (32-36); Mean Corpuscular Hemoglobin 28.5 pg (26-34); Mean Corpuscular Volume 93.6 fl (80-100); Mean Platelet Volume 12.5 fl (7.4-10.4); Monocytes Absolute Auto 0.8 K/mm3 (0.1-0.6); Monocytes Percent Auto 18.9 % (2.6-8.5); Neutrophils Absolute Auto 2.7 K/mm3 (1.3-6.7); Neutrophils Percent Auto 67.5 % (45.5-73.1); Platelet Count Result 113 k/mm3 (150-375); Red Blood Count 3.62 M/mm3 (4.6-6.20); Red Cell Distribution Width 13.4 % (11.5-14.5)
[2020-01-10 06:33] LABS: Alanine Aminotransferase 34 U/L (4-50); Albumin Level 3.4 g/dL (3.5-5.1); Alkaline Phosphatase 57 U/L (38-126); Aspartate Amino Transferase 73 U/L (17-59); Bilirubin,Total 0.4 mg/dL (0.2-1.3); Blood Urea Nitrogen 54 mg/dL (9-20); Calcium 8.3 mg/dL (8.4-10.2); Carbon Dioxide 24 mmol/L (22-30); Chloride 98 mmol/L (98-107); Estimated CRCL calculation 25 ml/min; Estimated Glomerular Filt Rate 17; Glucose 135 mg/dL (75-110); Potassium 4.4 mmol/L (3.4-5.0); Sodium 132 mmol/L (137-145)
[2020-01-10] MEDS: carvediloL 25 MG TABLET PO ×2 (09:09→20:40)
[2020-01-10] MEDS: CHOLECALCIFEROL 1,000 UNIT TABLET 1000 UNITS PO (09:09)
[2020-01-10] MEDS: ASPIRIN 81 MG ENTERIC TABLET PO (09:09)
[2020-01-10] MEDS: HEPARIN SODIUM 5,000 UNITS/ML VIAL 5000 UNITS SUB-Q ×2 (09:10→20:39)
[2020-01-10 10:03] LABS: Glucose Point of Care 116 (65-105)
--- NOTE | 2020-01-10 10:59 | PM.IMPN ---
Progress Note: A&P Assessment and Plan (1) Left upper lobe pneumonia: Qualifiers: Pneumonia type: due to unspecified organism Qualified Code(s): J18.9 - Pneumonia, unspecified organism Code(s): J18.9 - Pneumonia, unspecified organism Status: Acute Assessment and Plan: Continue ceftriaxone and azithromycin day 2 COVID-19 rt-PCR NEGATIVE 01/08 Oxygen 1 LPM by NC 01/08 to medical floor (2) Elevated troponin level: Code(s): R79.89 - Other specified abnormal findings of blood chemistry Status: Acute Assessment and Plan: Likely due to pneumonia Flat response Echo with EF 60-65% w/o wall motion abnormalities (3) Hyponatremia: Code(s): E87.1 - Hypo-osmolality and hyponatremia Status: Acute Assessment and Plan: 01/06 133 --> 01/09 132 Holding HCTZ 01/08 d/c'd IVF (4) Essential hypertension: Code(s): I10 - Essential (primary) hypertension Status: Acute Assessment and Plan: Continue carvedilol and lisinopril (5) Obstructive sleep apnea treated with BiPAP: Code(s): G47.33 - Obstructive sleep apnea (adult) (pediatric) Status: Acute Assessment and Plan: BiPAP while sleeping (6) Chronic kidney disease, stage 4, severely decreased GFR: Code(s): N18.4 - Chronic kidney disease, stage 4 (severe) Status: Acute Assessment and Plan: Creatinine 01/06 3.4 --> 01/08 4.7 --> 01/09 4.2 Likely due to infection, possible volume depletion at admission Seems to have peaked Continue to follow trend (7) Elevated d-dimer: Code(s): R79.89 - Other specified abnormal findings of blood chemistry Status: Acute Assessment and Plan: Negative LE venous dopplers Low probability V/Q scan Subjective Date/time seen: 01/10/20 10:59 Interval history: Admitted 01/06 with pneumonia and hypoxia. 01/08 about 18:57 rapid response due to brief altered mental status after napping without bipap. EKG and ABG unremarkable. No further episodes. 01/09 No sob at rest. OSCAR persists. Tolerating diet. Some loose stool. No bleeding. Denied pain. Denied edema. Denied c/o. Review of Systems Review of Systems: All systems reviewed & are unremarkable except as noted in HPI and below Exam Narrative: Exam Narrative: HEENT: EOMI, PERRL, sclerae nonicteric, pharyngeal mucosa pink and intact NECK: No JVD CHEST: Slightly course BS. Mildly tachypneic. HEART: NL S1/S2, regular, no murmur ABDOMEN: BS+, soft, nontender, no mass, no bruits EXTREMITIES: No cyanosis, edema, or clubbing NEUROLOGIC: CN intact and symmetric to inspection. MUSCULOSKELETAL: Tone and strength symmetric. PSYCH: Alert. Oriented to person, place, and time. Objective Data Vital Signs Vital Signs: Vital Signs - 24 hr 01/09/20 11:19 01/09/20 13:25 01/09/20 15:11 Temperature 100.5 F H 99.6 F Pulse Rate 76 48 L Respiratory Rate 22 H 26 H Blood Pressure 131/72 94/43 L Pulse Oximetry 92 94 94 01/09/20 16:00 01/09/20 19:15 01/09/20 19:40 Temperature 99.8 F H 100.4 F H Pulse Rate 56 L 87 Respiratory Rate 22 H 28 H 24 H Blood Pressure 110/68 120/60 85/57 L Pulse Oximetry 94 94 94 01/09/20 20:29 01/09/20 21:49 01/09/20 22:31 Temperature 98.7 F Pulse Rate 67 102 H 68 Respiratory Rate 23 H 20 Blood Pressure 140/78 Pulse Oximetry 97 98 01/10/20 03:56 01/10/20 06:00 Temperature 98.7 F 98.3 F Pulse Rate 80 77 Respiratory Rate 20 20 Blood Pressure 115/70 117/72 Pulse Oximetry 98 97 Intake/Output Intake/Output: Intake & Output 01/07/20 01/08/20 01/09/20 01/10/20 23:59 23:59 23:59 23:59 Intake Total 50 3590 1560 600 Output Total 1025 700 400 Balance 50 2565 860 200 Meds/Results Medications: Active Medications Generic Name Dose Route Start Last Admin Trade Name Freq PRN Reason Stop Dose Admin Acetaminophen 650 mg 01/07/20 15:19 01/08/20 21:16 Tylenol Tablet PO 650
[2020-01-10 13:01] LABS: Glucose Point of Care 97 (65-105)
--- NOTE | 2020-01-10 14:35 | PM.PNNEP ---
Progress Note: A&P Assessment and Plan (1) YOLI (acute kidney injury): Code(s): N17.9 - Acute kidney failure, unspecified Status: Acute Assessment and Plan: suspect due to: - acute infection (pneumonia) - prerenal factors -- urine electrolytes suggest volume depletion -- insensible losses from high fevers - ongoing use of BRITTNEE-I + HCTZ prior to admission renal ultrasound with kidney assymetry and bilateral cysts - component/degree of acquired cystic kidney(?) still making urine and no critical electroltyes creatinine better -- possible peak/plateau yesterday(?) continue supportive therapy (2) Chronic kidney disease, stage IV (severe): Code(s): N18.4 - Chronic kidney disease, stage 4 (severe) Status: Chronic Assessment and Plan: baseline creatinine ~ 2.5 - 2.8mg/dl presumably due to diabetes, hypertension, IRINA, and age follow-up on pending serologies (3) Hyponatremia: Code(s): E87.1 - Hypo-osmolality and hyponatremia Status: Acute Assessment and Plan: resolving if not stable probably due to volume depletion on top of YOLI/ARF cannot discount HCTZ use as outpatient may have played a role follow trend of sodium (4) Community acquired pneumonia: Qualifiers: Laterality: left Lung location: upper lobe of lung Qualified Code(s): J18.9 - Pneumonia, unspecified organism Code(s): J18.9 - Pneumonia, unspecified organism Status: Acute Assessment and Plan: on antibiotics follow culture data and temperature curve (5) Essential hypertension: Code(s): I10 - Essential (primary) hypertension Status: Acute Assessment and Plan: reasonable control holding BRITTNEE-I and HCTZ at this time follow trend of hemodynamics Will continue to follow. Subjective Date/time seen: 01/10/20 14:35 Continues to do reasonably well; no apparent distress voiced at the time of my visit; eating and drinking reasonably well; no issues or problems overnight or this AM. Exam Narrative: Exam Narrative: General: WD/WN AA male in NAD Heart: normal S1 and S2; no rub Lungs: clear to auscultation Abdomen: soft, nontender, nondistended, positive bowel sounds Extremities: no cyanosis or clubbing; no edema Skin: warm and intaact Objective Data Vital Signs Vital Signs: Vital Signs Temp Pulse Resp BP Pulse Ox 01/10/20 12:18 93 01/10/20 10:00 37.0 C 75 24 H 112/68 99 01/10/20 06:00 36.8 C 77 20 117/72 97 01/10/20 03:56 37.1 C 80 20 115/70 98 01/09/20 22:31 37.1 C 68 20 140/78 98 01/09/20 21:49 102 H 01/09/20 20:29 67 23 H 97 01/09/20 19:40 38.0 C H 87 24 H 85/57 L 94 01/09/20 19:15 28 H 120/60 94 01/09/20 16:00 37.7 C H 56 L 22 H 110/68 94 01/09/20 15:11 37.6 C 48 L 26 H 94/43 L 94 Intake/Output Intake/Output: Intake & Output 01/07/20 01/08/20 01/09/20 01/10/20 23:59 23:59 23:59 23:59 Intake Total 50 3590 1560 600 Output Total 1025 700 400 Balance 50 2565 860 200 Meds/Results Medications: Active Medications Generic Name Dose Route Start Last Admin Trade Name Freq PRN Reason Stop Dose Admin Acetaminophen 650 mg 01/07/20 15:19 01/08/20 21:16 Tylenol Tablet PO 650 mg Q4H PRN Administration Mild Pain (1-3) or Fever Albuterol 2 puff 01/07/20 23:27 01/09/20 11:16 Proventil Hfa INHALATION 2 puff QIDRT PRN Administration Shortness Of Breath Aspirin 81 mg 01/08/20 09:00 01/10/20 09:09 Aspirin Ec PO 81 mg DAILY CLARITZA Administration Carvedilol 25 mg 01/07/20 23:35 01/10/20 09:09 Coreg PO 25 mg Q12HR CLARITZA Administration Heparin Sodium (Porcine) 5,000 units 01/08/20 09:00 01/10/20 09:10 Heparin Sodium SUB-Q 5,000 units Q12HR CLARITZA Administration Azithromycin 500 mg in 250 mls @ 250 mls/hr 01/07/20 23:35 01/09/20 22:49 Zithromax IVPB Infus
[2020-01-10 17:32] LABS: Glucose Point of Care 112 (65-105)
[2020-01-10 21:22] LABS: Glucose Point of Care 121 (65-105)
[2020-01-11] VITALS (10 sets, daily range): BP systolic 106–135; BP diastolic 58–89; PULSE 65–84; RESP 17–25; TEMP 36.3–37.3; O2SAT 90–99
[2020-01-11 05:59] LABS: Basophils Percent Auto 0.3 % (0.2-1.2); Eosinophils Absolute Auto 0.1 K/mm3 (0-0.3); Eosinophils Percent Auto 1.9 % (0-4.4); Hematocrit 34.2 % (42.0-52.0); Hemoglobin 10.3 g/dL (14.0-18.0); Immature Granulocyte Absolute 0.02 K/mm3 (0.00-0.031); Immature Granulocyte Percent A 0.5 % (0-0.5); Lymphocytes Percent Auto 13.4 % (18.3-44.2); Mean Corpuscular HGB Conc 30.1 g/dl (32-36); Mean Corpuscular Hemoglobin 28.1 pg (26-34); Mean Corpuscular Volume 93.4 fl (80-100); Mean Platelet Volume 11.9 fl (7.4-10.4); Monocytes Absolute Auto 0.9 K/mm3 (0.1-0.6); Neutrophils Absolute Auto 2.3 K/mm3 (1.3-6.7); Neutrophils Percent Auto 60.9 % (45.5-73.1); Platelet Count Result 120 k/mm3 (150-375); Red Blood Count 3.66 M/mm3 (4.6-6.20); Red Cell Distribution Width 13.2 % (11.5-14.5); White Blood Count 3.7 K/mm3 (4.5-10.0)
[2020-01-11 06:08] LABS: Alanine Aminotransferase 34 U/L (4-50); Albumin Level 3.3 g/dL (3.5-5.1); Alkaline Phosphatase 59 U/L (38-126); Aspartate Amino Transferase 56 U/L (17-59); Bilirubin,Total 0.4 mg/dL (0.2-1.3); Blood Urea Nitrogen 56 mg/dL (9-20); Calcium 8.5 mg/dL (8.4-10.2); Carbon Dioxide 24 mmol/L (22-30); Chloride 99 mmol/L (98-107); Estimated CRCL calculation 28 ml/min; Estimated Glomerular Filt Rate 20; Glucose 100 mg/dL (75-110); Potassium 4.5 mmol/L (3.4-5.0); Sodium 130 mmol/L (137-145)
[2020-01-11] MEDS: ASPIRIN 81 MG ENTERIC TABLET PO (08:36)
[2020-01-11] MEDS: CHOLECALCIFEROL 1,000 UNIT TABLET 1000 UNITS PO (08:36)
[2020-01-11] MEDS: carvediloL 25 MG TABLET PO ×2 (08:37→21:09)
[2020-01-11] MEDS: HEPARIN SODIUM 5,000 UNITS/ML VIAL 5000 UNITS SUB-Q ×2 (08:45→21:09)
--- NOTE | 2020-01-11 10:17 | P.PNIM_ITS ---
Progress Note: A&P Assessment and Plan (1) Left upper lobe pneumonia: Qualifiers: Pneumonia type: due to unspecified organism Qualified Code(s): J18.9 - Pneumonia, unspecified organism Code(s): J18.9 - Pneumonia, unspecified organism Status: Acute Assessment and Plan: * Continue ceftriaxone and azithromycin day 2 * COVID-19 rt-PCR NEGATIVE * 01/08 Oxygen 1 LPM by NC * 01/08 to medical floor * 01/10 Due to increased dyspnea CXR and furosemide 80mg IV x1. (2) Elevated troponin level: Code(s): R79.89 - Other specified abnormal findings of blood chemistry Status: Acute Assessment and Plan: * Likely due to pneumonia * Flat response * Echo with EF 60-65% w/o wall motion abnormalities (3) Hyponatremia: Code(s): E87.1 - Hypo-osmolality and hyponatremia Status: Acute Assessment and Plan: * 01/06 133 --> 01/10 132 * Holding HCTZ * 01/08 d/c'd IVF * F/u lab (4) Essential hypertension: Code(s): I10 - Essential (primary) hypertension Status: Acute Assessment and Plan: * Continue carvedilol and lisinopril (5) Obstructive sleep apnea treated with BiPAP: Code(s): G47.33 - Obstructive sleep apnea (adult) (pediatric) Status: Acute Assessment and Plan: * BiPAP while sleeping (6) Chronic kidney disease, stage 4, severely decreased GFR: Code(s): N18.4 - Chronic kidney disease, stage 4 (severe) Status: Acute Assessment and Plan: * Creatinine 01/06 3.4 --> 01/08 4.7 --> 01/09 4.2 --> 01/10 3.7 * 01/10 24 hr I/O 1700/1555 * Likely due to infection, possible volume depletion at admission * Seems to have peaked * Continue to follow trend (7) Elevated d-dimer: Code(s): R79.89 - Other specified abnormal findings of blood chemistry Status: Acute Assessment and Plan: * Negative LE venous dopplers * Low probability V/Q scan Subjective Date/time seen: 01/11/20 10:17 Interval history: Admitted 01/06 with pneumonia and hypoxia. 01/08 about 18:57 rapid response due to brief altered mental status after napping without bipap. EKG and ABG unremarkable. No further episodes. 01/10 MILD sob at rest. Cough with pink, frothy sputum. OSCAR persists. Tolerating diet. No loose stool. No bleeding. Denied pain. Denied edema. Denied c/o. Review of Systems Review of Systems: All systems reviewed & are unremarkable except as noted in HPI and below Exam Narrative: Exam Narrative: HEENT: EOMI, PERRL, sclerae nonicteric, pharyngeal mucosa pink and intact NECK: No JVD CHEST: Slightly course BS anteriorly with decr BS at bases posteriorly. Mildly tachypneic. HEART: NL S1/S2, regular, no murmur ABDOMEN: BS+, soft, nontender, no mass, no bruits EXTREMITIES: No cyanosis, edema, or clubbing NEUROLOGIC: CN intact and symmetric to inspection. MUSCULOSKELETAL: Tone and strength symmetric. PSYCH: Alert. Oriented to person, place, and time. Objective Data Vital Signs Vital Signs: Vital Signs - 24 hr 01/10/20 12:00 01/10/20 12:18 01/10/20 16:00 Temperature 97.9 F 98.8 F Pulse Rate 77 73 Respiratory Rate 24 H 26 H Blood Pressure 120/82 122/76 Pulse Oximetry 97 93 100 01/10/20 20:40 01/10/20 22:26 01/10/20 22:55 Temperature 99.3 F Pulse Rate 78 76 66 Respiratory Rate 20
--- NOTE | 2020-01-11 10:17 | PM.IMPN ---
Progress Note: A&P Assessment and Plan (1) Left upper lobe pneumonia: Qualifiers: Pneumonia type: due to unspecified organism Qualified Code(s): J18.9 - Pneumonia, unspecified organism Code(s): J18.9 - Pneumonia, unspecified organism Status: Acute Assessment and Plan: Continue ceftriaxone and azithromycin day 2 COVID-19 rt-PCR NEGATIVE 01/08 Oxygen 1 LPM by NC 01/08 to medical floor 01/10 Due to increased dyspnea CXR and furosemide 80mg IV x1. (2) Elevated troponin level: Code(s): R79.89 - Other specified abnormal findings of blood chemistry Status: Acute Assessment and Plan: Likely due to pneumonia Flat response Echo with EF 60-65% w/o wall motion abnormalities (3) Hyponatremia: Code(s): E87.1 - Hypo-osmolality and hyponatremia Status: Acute Assessment and Plan: 01/06 133 --> 01/10 132 Holding HCTZ 01/08 d/c'd IVF F/u lab (4) Essential hypertension: Code(s): I10 - Essential (primary) hypertension Status: Acute Assessment and Plan: Continue carvedilol and lisinopril (5) Obstructive sleep apnea treated with BiPAP: Code(s): G47.33 - Obstructive sleep apnea (adult) (pediatric) Status: Acute Assessment and Plan: BiPAP while sleeping (6) Chronic kidney disease, stage 4, severely decreased GFR: Code(s): N18.4 - Chronic kidney disease, stage 4 (severe) Status: Acute Assessment and Plan: Creatinine 01/06 3.4 --> 01/08 4.7 --> 01/09 4.2 --> 01/10 3.7 01/10 24 hr I/O 1700/1555 Likely due to infection, possible volume depletion at admission Seems to have peaked Continue to follow trend (7) Elevated d-dimer: Code(s): R79.89 - Other specified abnormal findings of blood chemistry Status: Acute Assessment and Plan: Negative LE venous dopplers Low probability V/Q scan Subjective Date/time seen: 01/11/20 10:17 Interval history: Admitted 01/06 with pneumonia and hypoxia. 01/08 about 18:57 rapid response due to brief altered mental status after napping without bipap. EKG and ABG unremarkable. No further episodes. 01/10 MILD sob at rest. Cough with pink, frothy sputum. OSCAR persists. Tolerating diet. No loose stool. No bleeding. Denied pain. Denied edema. Denied c/o. Review of Systems Review of Systems: All systems reviewed & are unremarkable except as noted in HPI and below Exam Narrative: Exam Narrative: HEENT: EOMI, PERRL, sclerae nonicteric, pharyngeal mucosa pink and intact NECK: No JVD CHEST: Slightly course BS anteriorly with decr BS at bases posteriorly. Mildly tachypneic. HEART: NL S1/S2, regular, no murmur ABDOMEN: BS+, soft, nontender, no mass, no bruits EXTREMITIES: No cyanosis, edema, or clubbing NEUROLOGIC: CN intact and symmetric to inspection. MUSCULOSKELETAL: Tone and strength symmetric. PSYCH: Alert. Oriented to person, place, and time. Objective Data Vital Signs Vital Signs: Vital Signs - 24 hr 01/10/20 12:00 01/10/20 12:18 01/10/20 16:00 Temperature 97.9 F 98.8 F Pulse Rate 77 73 Respiratory Rate 24 H 26 H Blood Pressure 120/82 122/76 Pulse Oximetry 97 93 100 01/10/20 20:40 01/10/20 22:26 01/10/20 22:55 Temperature 99.3 F Pulse Rate 78 76 66 Respiratory Rate 20 23 H Blood Pressure 140/90 Pulse Oximetry 96 95 01/11/20 02:13 01/11/20 02:54 01/11/20 06:00 Temperature 98.3 F 97.4 F L Pulse Rate 65 69 70 Respiratory Rate 17 25 H 20 Blood Pressure 115/67 121/73 Pulse Oximetry 99 95 98 01/11/20 08:00 01/11/20 08:37 Temperature 98.7 F Pulse Rate 69 76 Respiratory Rate 20 Blood Pressure 135/80 Pulse Oximetry 97 Intake/Output Intake/Output: Intake & Output 01/08/20 01/09/20 01/10/20 01/11/20 23:59 23:59 23:59 23:59 Intake Total 3590 1610 1570 730 Output Total 7661 631 4945 575 Balance 2565 910 190 155 Meds/Results Medications: Active Medications Generic Na
[2020-01-11] MEDS: FUROSEMIDE INJ 100 MG/10 ML VIAL 80 MG IV PUSH (11:53)
[2020-01-11 14:07] LABS: Glucose Point of Care 160 (65-105)
[2020-01-11 14:07] LABS: Glucose Point of Care 160 (65-105)
--- NOTE | 2020-01-11 16:29 | P.PNNP_ITS ---
Progress Note: A&P Assessment and Plan (1) YOLI (acute kidney injury): Code(s): N17.9 - Acute kidney failure, unspecified Status: Acute Assessment and Plan: * suspect due to: - acute infection (pneumonia) - prerenal factors -- urine electrolytes suggest volume depletion -- insensible losses from high fevers - ongoing use of BRITTNEE-I + HCTZ prior to admission * renal ultrasound with kidney assymetry and bilateral cysts - component/degree of acquired cystic kidney(?) * still making urine and no critical electroltyes * creatinine peaked at 4.7 and is now down to 3.7. * Continue following. (2) Chronic kidney disease, stage IV (severe): Code(s): N18.4 - Chronic kidney disease, stage 4 (severe) Status: Chronic Assessment and Plan: * baseline creatinine ~ 2.5 - 2.8mg/dl * Renal ultrasound is unremarkable except for some cysts. * Urine sodium is a bit low. He may have a component of dehydration. * In addition, presumably due to diabetes, hypertension, IRINA, and age * follow-up on pending serologies (3) Hyponatremia: Code(s): E87.1 - Hypo-osmolality and hyponatremia Status: Acute Assessment and Plan: * Sodium 130 today. Will follow this along. * probably due to volume depletion on top of YOLI/ARF (4) Community acquired pneumonia: Qualifiers: Laterality: left Lung location: upper lobe of lung Qualified Code(s): J18.9 - Pneumonia, unspecified organism Code(s): J18.9 - Pneumonia, unspecified organism Status: Acute Assessment and Plan: * on antibiotics * follow culture data and temperature curve (5) Essential hypertension: Code(s): I10 - Essential (primary) hypertension Status: Acute Assessment and Plan: * reasonable control * holding BRITTNEE-I and HCTZ at this time * follow trend of hemodynamics Will continue to follow. Subjective Date/time seen: 01/11/20 16:29 Interval history: Patient is alert. Feels okay. No chest pain or shortness of breath. Review of Systems Cardiovascular: Cardiovascular: Reports no additional cardiovascular complaints Respiratory: Respiratory: Reports no additional respiratory complaints Gastrointestinal: Gastrointestinal: Reports no additional gastrointestinal complaints Genitourinary: Genitourinary: Reports no additional male genitourinary complaints Exam Narrative: Exam Narrative: General: WD/WN AA male in NAD Heart: normal S1 and S2; no rub Lungs: clear v Abdomen: soft, nontender, nondistended, positive bowel sounds Extremities: no cyanosis or clubbing; no edema Skin: No rash Objective Data Vital Signs Vital Signs: Vital Signs - 24 hr 01/10/20 20:40 01/10/20 22:26 01/10/20 22:55 Temperature 37.4 C Pulse Rate 78 76 66 Respiratory Rate 20 23 H Blood Pressure 140/90 Pulse Oximetry 96 95 01/11/20 02:13 01/11/20 02:54 01/11/20 06:00 Temperature 36.8 C 36.3 C L Pulse Rate 65 69 70 Respiratory Rate 17 25 H 20 Blood Pressure 115/67 121/73 Pulse Oximetry 99 95 98 01/11/20 08:00 01/11/20 08:37 01/11/20 12:00 Temperature 37.1 C 37.0 C Pulse Rate 69 76 69 Respiratory Rate 20 18 Blood Pressure 135
--- NOTE | 2020-01-11 16:29 | PM.PNNEP ---
Progress Note: A&P Assessment and Plan (1) YOLI (acute kidney injury): Code(s): N17.9 - Acute kidney failure, unspecified Status: Acute Assessment and Plan: suspect due to: - acute infection (pneumonia) - prerenal factors -- urine electrolytes suggest volume depletion -- insensible losses from high fevers - ongoing use of BRITTNEE-I + HCTZ prior to admission renal ultrasound with kidney assymetry and bilateral cysts - component/degree of acquired cystic kidney(?) still making urine and no critical electroltyes creatinine peaked at 4.7 and is now down to 3.7. Continue following. (2) Chronic kidney disease, stage IV (severe): Code(s): N18.4 - Chronic kidney disease, stage 4 (severe) Status: Chronic Assessment and Plan: baseline creatinine ~ 2.5 - 2.8mg/dl Renal ultrasound is unremarkable except for some cysts. Urine sodium is a bit low. He may have a component of dehydration. In addition, presumably due to diabetes, hypertension, IRINA, and age follow-up on pending serologies (3) Hyponatremia: Code(s): E87.1 - Hypo-osmolality and hyponatremia Status: Acute Assessment and Plan: Sodium 130 today. Will follow this along. probably due to volume depletion on top of YOLI/ARF (4) Community acquired pneumonia: Qualifiers: Laterality: left Lung location: upper lobe of lung Qualified Code(s): J18.9 - Pneumonia, unspecified organism Code(s): J18.9 - Pneumonia, unspecified organism Status: Acute Assessment and Plan: on antibiotics follow culture data and temperature curve (5) Essential hypertension: Code(s): I10 - Essential (primary) hypertension Status: Acute Assessment and Plan: reasonable control holding BRITTNEE-I and HCTZ at this time follow trend of hemodynamics Will continue to follow. Subjective Date/time seen: 01/11/20 16:29 Interval history: Patient is alert. Feels okay. No chest pain or shortness of breath. Review of Systems Cardiovascular: Cardiovascular: Reports no additional cardiovascular complaints Respiratory: Respiratory: Reports no additional respiratory complaints Gastrointestinal: Gastrointestinal: Reports no additional gastrointestinal complaints Genitourinary: Genitourinary: Reports no additional male genitourinary complaints Exam Narrative: Exam Narrative: General: WD/WN AA male in NAD Heart: normal S1 and S2; no rub Lungs: clear v Abdomen: soft, nontender, nondistended, positive bowel sounds Extremities: no cyanosis or clubbing; no edema Skin: No rash Objective Data Vital Signs Vital Signs: Vital Signs - 24 hr 01/10/20 20:40 01/10/20 22:26 01/10/20 22:55 Temperature 37.4 C Pulse Rate 78 76 66 Respiratory Rate 20 23 H Blood Pressure 140/90 Pulse Oximetry 96 95 01/11/20 02:13 01/11/20 02:54 01/11/20 06:00 Temperature 36.8 C 36.3 C L Pulse Rate 65 69 70 Respiratory Rate 17 25 H 20 Blood Pressure 115/67 121/73 Pulse Oximetry 99 95 98 01/11/20 08:00 01/11/20 08:37 01/11/20 12:00 Temperature 37.1 C 37.0 C Pulse Rate 69 76 69 Respiratory Rate 20 18 Blood Pressure 135/80 114/70 Pulse Oximetry 97 98 Intake/Output Intake/Output: Intake & Output 01/08/20 01/09/20 01/10/20 01/11/20 23:59 23:59 23:59 23:59 Intake Total 3590 1610 1570 810 Output Total 1988 375 9603 575 Balance 2565 910 190 235 Meds/Results Medications: Active Medications Generic Name Dose Route Start Last Admin Trade Name Freq PRN Reason Stop Dose Admin Acetaminophen 650 mg 01/07/20 15:19 01/08/20 21:16 Tylenol Tablet PO 650 mg Q4H PRN Administration Mild Pain (1-3) or Fever Albuterol 2 puff 01/07/20 23:27 01/09/20 11:16 Proventil Hfa INHALATION 2 puff QIDRT PRN Administration Shortness Of Breath Aspirin 81 mg 01/08/20 09:00 01/11/20 08:36 Aspirin Ec PO 81 mg
[2020-01-11 18:03] LABS: Glucose Point of Care 103 (65-105)
[2020-01-11 19:45] LABS: Anti Glomerular Basement Memb <1.0 AI (<1.0)
[2020-01-11 22:22] LABS: Glucose Point of Care 153 (65-105)
[2020-01-12] VITALS (10 sets, daily range): BP systolic 57–137; BP diastolic 29–72; PULSE 65–79; RESP 16–18; TEMP 36.4–37.2; O2SAT 94–100
[2020-01-12 06:31] LABS: Basophils Percent Auto 0.5 % (0.2-1.2); Eosinophils Absolute Auto 0.1 K/mm3 (0-0.3); Eosinophils Percent Auto 2.8 % (0-4.4); Hematocrit 35.6 % (42.0-52.0); Hemoglobin 10.7 g/dL (14.0-18.0); Immature Granulocyte Absolute 0.03 K/mm3 (0.00-0.031); Immature Granulocyte Percent A 0.8 % (0-0.5); Lymphocytes Absolute Auto 0.62 K/mm3 (0.9-3.2); Lymphocytes Percent Auto 15.9 % (18.3-44.2); Mean Corpuscular HGB Conc 30.1 g/dl (32-36); Mean Corpuscular Hemoglobin 27.9 pg (26-34); Mean Platelet Volume 11.9 fl (7.4-10.4); Monocytes Absolute Auto 0.5 K/mm3 (0.1-0.6); Monocytes Percent Auto 13.4 % (2.6-8.5); Neutrophils Absolute Auto 2.6 K/mm3 (1.3-6.7); Neutrophils Percent Auto 66.6 % (45.5-73.1); Platelet Count Result 155 k/mm3 (150-375); Red Blood Count 3.83 M/mm3 (4.6-6.20); Red Cell Distribution Width 13.2 % (11.5-14.5); White Blood Count 3.9 K/mm3 (4.5-10.0)
[2020-01-12 06:44] LABS: Alanine Aminotransferase 36 U/L (4-50); Albumin Level 3.8 g/dL (3.5-5.1); Alkaline Phosphatase 69 U/L (38-126); Aspartate Amino Transferase 44 U/L (17-59); Bilirubin,Total 0.5 mg/dL (0.2-1.3); Blood Urea Nitrogen 54 mg/dL (9-20); Calcium 8.7 mg/dL (8.4-10.2); Carbon Dioxide 26 mmol/L (22-30); Chloride 96 mmol/L (98-107); Estimated CRCL calculation 31 ml/min; Estimated Glomerular Filt Rate 22; Glucose 118 mg/dL (75-110); Phosphorus 4.7 mg/dL (2.5-4.5); Potassium 4.5 mmol/L (3.4-5.0); Sodium 132 mmol/L (137-145)
[2020-01-12 08:09] LABS: Glucose Point of Care 115 (65-105)
[2020-01-12] MEDS: carvediloL 25 MG TABLET PO ×2 (08:25→20:46)
[2020-01-12] MEDS: ASPIRIN 81 MG ENTERIC TABLET PO (08:25)
[2020-01-12] MEDS: CHOLECALCIFEROL 1,000 UNIT TABLET 1000 UNITS PO (08:27)
[2020-01-12] MEDS: HEPARIN SODIUM 5,000 UNITS/ML VIAL 5000 UNITS SUB-Q ×2 (08:27→20:48)
--- NOTE | 2020-01-12 10:38 | P.PNNP_ITS ---
Progress Note: A&P Assessment and Plan (1) YOLI (acute kidney injury): Code(s): N17.9 - Acute kidney failure, unspecified Status: Acute Assessment and Plan: * suspect due to: - acute infection (pneumonia) - prerenal factors -- urine electrolytes suggest volume depletion -- insensible losses from high fevers - ongoing use of BRITTNEE-I + HCTZ prior to admission * renal ultrasound with kidney assymetry and bilateral cysts - component/degree of acquired cystic kidney(?) * still making urine and no critical electroltyes * creatinine peaked at 4.7 and is now has improved again to 3.4. * Continue following. (2) Chronic kidney disease, stage IV (severe): Code(s): N18.4 - Chronic kidney disease, stage 4 (severe) Status: Chronic Assessment and Plan: * baseline creatinine ~ 2.5 - 2.8mg/dl * Renal ultrasound is unremarkable except for some cysts. * Urine sodium is a bit low. He may have a component of dehydration. * In addition, presumably due to diabetes, hypertension, IRINA, and age * Complements, TOBIAS, Anca, COVID, hepatitis, influenza and DNa are negative. (3) Hyponatremia: Code(s): E87.1 - Hypo-osmolality and hyponatremia Status: Acute Assessment and Plan: * Sodium 132 today. Will follow this along. * probably due to volume depletion on top of YOLI/ARF (4) Community acquired pneumonia: Qualifiers: Laterality: left Lung location: upper lobe of lung Qualified Code(s): J18.9 - Pneumonia, unspecified organism Code(s): J18.9 - Pneumonia, unspecified organism Status: Acute Assessment and Plan: * on antibiotics * follow culture data and temperature curve (5) Essential hypertension: Code(s): I10 - Essential (primary) hypertension Status: Acute Assessment and Plan: * This is well controlled. Will continue to follow. Additional Plan Subjective Date/time seen: 01/12/20 10:38 Interval history: Patient is alert. Feels okay. Slept okay. Eating okay. Review of Systems Cardiovascular: Cardiovascular: Reports no additional cardiovascular complaints Respiratory: Respiratory: Reports no additional respiratory complaints Gastrointestinal: Gastrointestinal: Reports no additional gastrointestinal complaints Genitourinary: Genitourinary: Reports no additional male genitourinary complaints Exam Narrative: Exam Narrative: Well developed well-nourished in no acute distress Lungs clear Heart regular without rub Abdomen bowel sounds positive soft nontender Extremities no edema Skin no rash Objective Data Vital Signs Vital Signs: Vital Signs - 24 hr 01/11/20 12:00 01/11/20 16:00 01/11/20 21:00 Temperature 37.0 C 37.3 C 37.3 C Pulse Rate 69 84 75 Respiratory Rate 18 18 18 Blood Pressure 114/70 125/89 106/58 L Pulse Oximetry 98 90 96 01/11/20 21:09 01/11/20 22:49 01/12/20 02:00 Temperature 37.0 C Pulse Rate 73 73 69 Respiratory Rate 18 Blood Pressure 113/65 Pulse Oximetry 92 99 01/12/20 06:00 01/12/20 08:25 Temperature 36.8 C Pulse Rate 65 76 Respiratory Rate 18 Blood Pressure 100/65 Pulse Oximetry 94 Intake/O
--- NOTE | 2020-01-12 10:38 | PM.PNNEP ---
Progress Note: A&P Assessment and Plan (1) YOLI (acute kidney injury): Code(s): N17.9 - Acute kidney failure, unspecified Status: Acute Assessment and Plan: suspect due to: - acute infection (pneumonia) - prerenal factors -- urine electrolytes suggest volume depletion -- insensible losses from high fevers - ongoing use of BRITTNEE-I + HCTZ prior to admission renal ultrasound with kidney assymetry and bilateral cysts - component/degree of acquired cystic kidney(?) still making urine and no critical electroltyes creatinine peaked at 4.7 and is now has improved again to 3.4. Continue following. (2) Chronic kidney disease, stage IV (severe): Code(s): N18.4 - Chronic kidney disease, stage 4 (severe) Status: Chronic Assessment and Plan: baseline creatinine ~ 2.5 - 2.8mg/dl Renal ultrasound is unremarkable except for some cysts. Urine sodium is a bit low. He may have a component of dehydration. In addition, presumably due to diabetes, hypertension, IRINA, and age Complements, TOBIAS, Anca, COVID, hepatitis, influenza and DNa are negative. (3) Hyponatremia: Code(s): E87.1 - Hypo-osmolality and hyponatremia Status: Acute Assessment and Plan: Sodium 132 today. Will follow this along. probably due to volume depletion on top of YOLI/ARF (4) Community acquired pneumonia: Qualifiers: Laterality: left Lung location: upper lobe of lung Qualified Code(s): J18.9 - Pneumonia, unspecified organism Code(s): J18.9 - Pneumonia, unspecified organism Status: Acute Assessment and Plan: on antibiotics follow culture data and temperature curve (5) Essential hypertension: Code(s): I10 - Essential (primary) hypertension Status: Acute Assessment and Plan: This is well controlled. Will continue to follow. Additional Plan Subjective Date/time seen: 01/12/20 10:38 Interval history: Patient is alert. Feels okay. Slept okay. Eating okay. Review of Systems Cardiovascular: Cardiovascular: Reports no additional cardiovascular complaints Respiratory: Respiratory: Reports no additional respiratory complaints Gastrointestinal: Gastrointestinal: Reports no additional gastrointestinal complaints Genitourinary: Genitourinary: Reports no additional male genitourinary complaints Exam Narrative: Exam Narrative: Well developed well-nourished in no acute distress Lungs clear Heart regular without rub Abdomen bowel sounds positive soft nontender Extremities no edema Skin no rash Objective Data Vital Signs Vital Signs: Vital Signs - 24 hr 01/11/20 12:00 01/11/20 16:00 01/11/20 21:00 Temperature 37.0 C 37.3 C 37.3 C Pulse Rate 69 84 75 Respiratory Rate 18 18 18 Blood Pressure 114/70 125/89 106/58 L Pulse Oximetry 98 90 96 01/11/20 21:09 01/11/20 22:49 01/12/20 02:00 Temperature 37.0 C Pulse Rate 73 73 69 Respiratory Rate 18 Blood Pressure 113/65 Pulse Oximetry 92 99 01/12/20 06:00 01/12/20 08:25 Temperature 36.8 C Pulse Rate 65 76 Respiratory Rate 18 Blood Pressure 100/65 Pulse Oximetry 94 Intake/Output Intake/Output: Intake & Output 01/09/20 01/10/20 01/11/20 01/12/20 23:59 23:59 23:59 23:59 Intake Total 1610 1620 2340 550 Output Total 700 1380 2475 850 Balance 910 240 -135 -300 Meds/Results Medications: Active Medications Generic Name Dose Route Start Last Admin Trade Name Freq PRN Reason Stop Dose Admin Acetaminophen 650 mg 01/07/20 15:19 01/08/20 21:16 Tylenol Tablet PO 650 mg Q4H PRN Administration Mild Pain (1-3) or Fever Albuterol 2 puff 01/07/20 23:27 01/09/20 11:16 Proventil Hfa INHALATION 2 puff QIDRT PRN Administration Shortness Of Breath Aspirin 81 mg 01/08/20 09:00 01/12/20 08:25 Aspirin Ec PO 81 mg DAILY CLARITZA Administration Carvedilol 25 mg 01/07/20 23:35 04
[2020-01-12 12:22] LABS: Glucose Point of Care 163 (65-105)
[2020-01-12 15:16] LABS: Legionella pneumophila Ag Ur Detected (Not Detected)
--- NOTE | 2020-01-12 16:18 | PM.IMPN ---
Progress Note: A&P Assessment and Plan (1) Community acquired pneumonia: Qualifiers: Laterality: left Lung location: upper lobe of lung Qualified Code(s): J18.9 - Pneumonia, unspecified organism Code(s): J18.9 - Pneumonia, unspecified organism Status: Acute Assessment and Plan: COVID negative. Blood culture no growth.. Continue treatment with ceftriaxone and azithromycin (2) Acute respiratory failure with hypoxemia: Code(s): J96.01 - Acute respiratory failure with hypoxia Status: Acute Assessment and Plan: Still on 4 L. continue to monitor and taper as possible. Secondary to pneumonia (3) Chronic kidney disease, stage IV (severe): Code(s): N18.4 - Chronic kidney disease, stage 4 (severe) Status: Chronic Assessment and Plan: Acute on chronic renal failure. Creatinine from 4.7 now to 3.4 thought secondary to infection and pre renal azotemia (4) Elevated d-dimer: Code(s): R79.89 - Other specified abnormal findings of blood chemistry Status: Acute Assessment and Plan: Elevated with negative Doppler and low probability V/Q (5) Elevated troponin level: Code(s): R79.89 - Other specified abnormal findings of blood chemistry Status: Acute Assessment and Plan: No acute coronary syndrome. Echo shows no wall motion abnormalities with normal ejection fraction (6) Essential hypertension: Code(s): I10 - Essential (primary) hypertension Status: Acute Assessment and Plan: Blood pressure well controlled with Coreg alone. Lisinopril remains on hold with elevated creatinine (7) DVT prophylaxis: Code(s): Z29.9 - Encounter for prophylactic measures, unspecified Status: Acute Assessment and Plan: Subcu heparin Subjective Date/time seen: 01/12/20 16:18 Interval history: Date of visit 01/11. Admitted 01/06 with pneumonia and hypoxia. 01/08 about 18:57 rapid response due to brief altered mental status after napping without bipap. EKG and ABG unremarkable. No further episodes. 01/10 MILD sob at rest. Cough with pink, frothy sputum. OSCAR persists. Tolerating diet. Better today but still weak No loose stool. No bleeding. Denied pain. Denied edema. Denied c/o. Exam Narrative: Exam Narrative: Blood pressure 136/72 pulse is 72 HEENT: , PERRL, sclerae nonicteric, NECK: No JVD CHEST: Slightly course BS anteriorly with decr BS at bases posteriorly especially left. Mildly tachypneic. HEART: NL S1/S2, regular, no murmur ABDOMEN: BS+, soft, nontender, no mass, no bruits EXTREMITIES: No cyanosis, edema, or clubbing NEUROLOGIC: CN intact and symmetric to inspection. PSYCH: Alert. Oriented to person, place, and time. Objective Data Vital Signs Vital Signs: Vital Signs - 24 hr 01/11/20 21:00 01/11/20 21:09 01/11/20 22:49 Temperature 37.3 C Pulse Rate 75 73 73 Respiratory Rate 18 Blood Pressure 106/58 L Pulse Oximetry 96 92 01/12/20 02:00 01/12/20 06:00 01/12/20 08:25 Temperature 37.0 C 36.8 C Pulse Rate 69 65 76 Respiratory Rate 18 18 Blood Pressure 113/65 100/65 Pulse Oximetry 99 94 01/12/20 10:00 01/12/20 14:00 Temperature 36.4 C 36.4 C Pulse Rate 72 73 Respiratory Rate 18 18 Blood Pressure 57/29 L 137/72 Pulse Oximetry 100 99 Intake/Output Intake/Output: Intake & Output 01/09/20 01/10/20 01/11/20 01/12/20 23:59 23:59 23:59 23:59 Intake Total 1610 1620 2340 910 Output Total 700 1380 2475 850 Balance 910 240 -135 60 Meds/Results Medications: Active Medications Generic Name Dose Route Start Last Admin Trade Name Freq PRN Reason Stop Dose Admin Acetaminophen 650 mg 01/07/20 15:19 01/08/20 21:16 Tylenol Tablet PO 650 mg Q4H PRN Administration Mild Pain (1-3) or Fever Albuterol 2 puff 01/07/20 23:27 01/09/20 11:16 Proventil Hfa INHALATION 2 puff QIDRT PRN Administration Shortness Of Breath Aspirin 81 mg
[2020-01-12 17:22] LABS: Glucose Point of Care 109 (65-105)
[2020-01-12 21:00] LABS: Glucose Point of Care 119 (65-105)
[2020-01-12 23:34] LABS: Albumin 2.7 g/dL (3.8-4.8); Alpha 1 Globulin 0.5 g/dL (0.2-0.3); Alpha 2 Globulin 0.9 g/dL (0.5-0.9); Beta 1 Globulin 0.4 g/dL (0.4-0.6); Gamma Globulin 0.9 g/dL (0.8-1.7); Protein, Total 5.7 g/dL (6.1-8.1)
[2020-01-13] VITALS (9 sets, daily range): BP systolic 94–138; BP diastolic 69–87; PULSE 65–80; RESP 16–18; TEMP 36.4–36.8; O2SAT 92–100
[2020-01-13] MEDS: AZITHROMYCIN 250 MG TABLET 500 MG PO ×2 (01:28→21:44)
[2020-01-13 06:39] LABS: Basophils Percent Auto 0.3 % (0.2-1.2); Eosinophils Absolute Auto 0.1 K/mm3 (0-0.3); Eosinophils Percent Auto 2.8 % (0-4.4); Hematocrit 35.9 % (42.0-52.0); Hemoglobin 10.8 g/dL (14.0-18.0); Immature Granulocyte Absolute 0.06 K/mm3 (0.00-0.031); Immature Granulocyte Percent A 1.5 % (0-0.5); Lymphocytes Absolute Auto 0.59 K/mm3 (0.9-3.2); Mean Corpuscular HGB Conc 30.1 g/dl (32-36); Mean Corpuscular Hemoglobin 27.8 pg (26-34); Mean Corpuscular Volume 92.3 fl (80-100); Mean Platelet Volume 11.9 fl (7.4-10.4); Monocytes Absolute Auto 0.5 K/mm3 (0.1-0.6); Monocytes Percent Auto 12.5 % (2.6-8.5); Neutrophils Absolute Auto 2.7 K/mm3 (1.3-6.7); Neutrophils Percent Auto 67.9 % (45.5-73.1); Platelet Count Result 178 k/mm3 (150-375); Red Blood Count 3.89 M/mm3 (4.6-6.20); Red Cell Distribution Width 13.2 % (11.5-14.5); White Blood Count 3.9 K/mm3 (4.5-10.0)
[2020-01-13 06:48] LABS: Alanine Aminotransferase 32 U/L (4-50); Albumin Level 3.7 g/dL (3.5-5.1); Alkaline Phosphatase 67 U/L (38-126); Aspartate Amino Transferase 41 U/L (17-59); Bilirubin,Total 0.4 mg/dL (0.2-1.3); Blood Urea Nitrogen 54 mg/dL (9-20); Carbon Dioxide 27 mmol/L (22-30); Chloride 98 mmol/L (98-107); Estimated CRCL calculation 36 ml/min; Estimated Glomerular Filt Rate 27; Glucose 108 mg/dL (75-110); Potassium 4.4 mmol/L (3.4-5.0); Sodium 132 mmol/L (137-145)
[2020-01-13] MEDS: ASPIRIN 81 MG ENTERIC TABLET PO (09:00)
[2020-01-13] MEDS: carvediloL 25 MG TABLET PO ×2 (09:00→21:43)
[2020-01-13] MEDS: CHOLECALCIFEROL 1,000 UNIT TABLET 1000 UNITS PO (09:00)
[2020-01-13] MEDS: HEPARIN SODIUM 5,000 UNITS/ML VIAL 5000 UNITS SUB-Q ×2 (09:00→21:44)
[2020-01-13 12:50] LABS: Myoglobin, Urine 1310 mcg/L (<28)
--- NOTE | 2020-01-13 14:38 | PM.PNNEP ---
Progress Note: A&P Assessment and Plan (1) Essential hypertension: Code(s): I10 - Essential (primary) hypertension Status: Acute Assessment and Plan: Blood pressure is well controlled. (2) Chronic kidney disease, stage 4, severely decreased GFR: Code(s): N18.4 - Chronic kidney disease, stage 4 (severe) Status: Acute Assessment and Plan: baseline creatinine ~ 2.5 - 2.8mg/dl Renal ultrasound is unremarkable except for some cysts. Urine sodium is a bit low. He may have a component of dehydration. In addition, presumably due to diabetes, hypertension, IRINA, and age Complements, TOBIAS, Anca, COVID, hepatitis, influenza and DNa are negative. His creatinine is slowly better but still above baseline. Sodium is stable at 132. (3) Hernia: Code(s): K46.9 - Unspecified abdominal hernia without obstruction or gangrene (4) Abdominal aortic aneurysm dissection: Code(s): I71.02 - Dissection of abdominal aorta Status: Acute Additional Plan Subjective Date/time seen: 01/13/20 14:38 Interval history: Patient is alert. Feels okay. Eating well. Review of Systems Cardiovascular: Cardiovascular: Reports no additional cardiovascular complaints Respiratory: Respiratory: Reports no additional respiratory complaints Gastrointestinal: Gastrointestinal: Reports no additional gastrointestinal complaints Genitourinary: Genitourinary: Reports no additional male genitourinary complaints Exam Narrative: Exam Narrative: Well developed well-nourished in no acute distress Lungs clear Heart regular without rub Abdomen bowel sounds positive soft nontender Extremities no edema Skin no rash Objective Data Vital Signs Vital Signs: Vital Signs - 24 hr 01/12/20 16:00 01/12/20 17:25 01/12/20 20:46 Temperature 37.2 C Pulse Rate 79 72 Respiratory Rate 16 Blood Pressure Pulse Oximetry 98 95 01/12/20 21:42 01/13/20 02:14 01/13/20 06:00 Temperature 36.7 C 36.6 C 36.4 C L Pulse Rate 79 80 78 Respiratory Rate 18 18 18 Blood Pressure 129/60 138/87 118/75 Pulse Oximetry 96 95 96 01/13/20 09:00 01/13/20 09:15 01/13/20 11:14 Temperature 36.6 C Pulse Rate 78 76 Respiratory Rate 16 Blood Pressure 115/73 Pulse Oximetry 92 100 Intake/Output Intake/Output: Intake & Output 01/10/20 01/11/20 01/12/20 01/13/20 23:59 23:59 23:59 23:59 Intake Total 1620 2340 2430 640 Output Total 1380 2475 1545 1200 Balance 240 -135 885 -560 Meds/Results Medications: Active Medications Generic Name Dose Route Start Last Admin Trade Name Freq PRN Reason Stop Dose Admin Acetaminophen 650 mg 01/07/20 15:19 01/08/20 21:16 Tylenol Tablet PO 650 mg Q4H PRN Administration Mild Pain (1-3) or Fever Albuterol 2 puff 01/07/20 23:27 01/09/20 11:16 Proventil Hfa INHALATION 2 puff QIDRT PRN Administration Shortness Of Breath Aspirin 81 mg 01/08/20 09:00 01/13/20 09:00 Aspirin Ec PO 81 mg DAILY CLARITZA Administration Azithromycin 500 mg 01/13/20 21:00 Zithromax Tablet PO HS CLARITZA Carvedilol 25 mg 01/07/20 23:35 01/13/20 09:00 Coreg PO 25 mg Q12HR CLARITZA Administration Heparin Sodium (Porcine) 5,000 units 01/08/20 09:00 01/13/20 09:00 Heparin Sodium SUB-Q 5,000 units Q12HR CLARITZA Administration Ceftriaxone Sodium/Dextrose 1 gm in 50 mls @ 100 mls/hr 01/08/20 16:00 01/12/20 17:21 Rocephin 1 Gm/D5w 50 Ml IVPB Infused DAILY@1600 CLARITZA Infusion Lisinopril 10 mg 01/08/20 09:00 01/09/20 08:26 Prinivil PO 10 mg DAILY CLARITZA Administration Ondansetron HCl 4 mg 01/07/20 15:19 01/08/20 02:31 Zofran Inj IV PUSH 4 mg Q4H PRN Administration Nausea Vitamin D 1,000 unit 01/08/20 09:00 01/13/20 09:00 Vitamin D PO 1,000 unit DAILY CLARITZA Administration Radiology Results: ITS Impressions Renal Ultrasound 01/08/20 12:48 Impression: 1: Bilateral renal cysts.
--- NOTE | 2020-01-13 15:15 | PM.IMPN ---
Progress Note: A&P Assessment and Plan (1) Community acquired pneumonia: Qualifiers: Laterality: left Lung location: upper lobe of lung Qualified Code(s): J18.9 - Pneumonia, unspecified organism Code(s): J18.9 - Pneumonia, unspecified organism Status: Acute Assessment and Plan: COVID negative. Blood culture no growth.. Legionella P urine antigen + so Continue treatment azithromycin and stop ceftriaxone probable d/c 01/13 (2) Acute respiratory failure with hypoxemia: Code(s): J96.01 - Acute respiratory failure with hypoxia Status: Acute Assessment and Plan: Now saturating 100% on room air, improved rapidly (3) Chronic kidney disease, stage IV (severe): Code(s): N18.4 - Chronic kidney disease, stage 4 (severe) Status: Chronic Assessment and Plan: Acute on chronic renal failure. Creatinine from 4.7 now to 2.9 thought secondary to infection and pre renal azotemia Baseline 2.5-2.8 (4) Elevated d-dimer: Code(s): R79.89 - Other specified abnormal findings of blood chemistry Status: Acute Assessment and Plan: Elevated with negative Doppler and low probability V/Q (5) Elevated troponin level: Code(s): R79.89 - Other specified abnormal findings of blood chemistry Status: Acute Assessment and Plan: No acute coronary syndrome. Echo shows no wall motion abnormalities with normal ejection fraction (6) Essential hypertension: Code(s): I10 - Essential (primary) hypertension Status: Acute Assessment and Plan: Blood pressure well controlled with Coreg alone. Lisinopril remains on hold with elevated creatinine (7) DVT prophylaxis: Code(s): Z29.9 - Encounter for prophylactic measures, unspecified Status: Acute Assessment and Plan: Subcu heparin Subjective Date/time seen: 01/13/20 15:15 Interval history: Date of visit 01/12. Admitted 01/06 with pneumonia and hypoxia. 01/08 about 18:57 rapid response due to brief altered mental status after napping without bipap. EKG and ABG unremarkable. No further episodes. 01/10 MILD sob at rest. Cough with pink, frothy sputum. OSCAR persists. Tolerating diet. Better again today and less weak No loose stool. No bleeding. Denied pain. Denied edema. Denied c/o. Exam Narrative: Exam Narrative: Blood pressure 116/72 pulse is 76 HEENT: , PERRL, sclerae nonicteric, NECK: No JVD CHEST: Slightly course BS anteriorly with decr BS at bases posteriorly especially left with very faint crackle. . HEART: NL S1/S2, regular, no murmur ABDOMEN: BS+, soft, nontender, no mass, no bruits EXTREMITIES: No cyanosis, edema, or clubbing NEUROLOGIC: CN intact and symmetric to inspection. PSYCH: Alert. Oriented to person, place, and time. Objective Data Vital Signs Vital Signs: Vital Signs - 24 hr 01/12/20 16:00 01/12/20 17:25 01/12/20 20:46 Temperature 37.2 C Pulse Rate 79 72 Respiratory Rate 16 Blood Pressure Pulse Oximetry 98 95 01/12/20 21:42 01/13/20 02:14 01/13/20 06:00 Temperature 36.7 C 36.6 C 36.4 C L Pulse Rate 79 80 78 Respiratory Rate 18 18 18 Blood Pressure 129/60 138/87 118/75 Pulse Oximetry 96 95 96 01/13/20 09:00 01/13/20 09:15 01/13/20 11:14 Temperature 36.6 C Pulse Rate 78 76 Respiratory Rate 16 Blood Pressure 115/73 Pulse Oximetry 92 100 Intake/Output Intake/Output: Intake & Output 01/10/20 01/11/20 01/12/20 01/13/20 23:59 23:59 23:59 23:59 Intake Total 1620 2340 2430 640 Output Total 1380 2475 1545 1200 Balance 240 -135 885 -560 Meds/Results Medications: Active Medications Generic Name Dose Route Start Last Admin Trade Name Colinq PRN Reason Stop Dose Admin Acetaminophen 650 mg 01/07/20 15:19 01/08/20 21:16 Tylenol Tablet PO 650 mg Q4H PRN Administration Mild Pain (1-3) or Fever Albuterol 2 puff 01/07/20 23:27 01/09/20 11:16 Proventil Hfa INHALATION 2 puff QIDRT P
[2020-01-13 18:29] LABS: Chloride Rand Ur 50 mmol/L (32-290); Chloride/Creatinine Rand Ur 21 (23-275); Creatinine Random Urine 236 mg/dL (20-320)
[2020-01-13 22:28] LABS: ANCA Screen Negative (Negative)
[2020-01-14 02:14] VITALS: BP 145/86; PULSE 80; RESP 18; TEMP 36.3; O2SAT 95
[2020-01-14 06:31] LABS: Basophils Percent Auto 0.5 % (0.2-1.2); Eosinophils Absolute Auto 0.1 K/mm3 (0-0.3); Eosinophils Percent Auto 2.7 % (0-4.4); Hematocrit 36.5 % (42.0-52.0); Hemoglobin 11.2 g/dL (14.0-18.0); Immature Granulocyte Absolute 0.09 K/mm3 (0.00-0.031); Immature Granulocyte Percent A 2.2 % (0-0.5); Lymphocytes Absolute Auto 0.82 K/mm3 (0.9-3.2); Lymphocytes Percent Auto 20.1 % (18.3-44.2); Mean Corpuscular HGB Conc 30.7 g/dl (32-36); Mean Corpuscular Hemoglobin 28.4 pg (26-34); Mean Corpuscular Volume 92.6 fl (80-100); Mean Platelet Volume 11.9 fl (7.4-10.4); Monocytes Absolute Auto 0.4 K/mm3 (0.1-0.6); Monocytes Percent Auto 9.3 % (2.6-8.5); Neutrophils Absolute Auto 2.7 K/mm3 (1.3-6.7); Neutrophils Percent Auto 65.2 % (45.5-73.1); Platelet Count Result 231 k/mm3 (150-375); Red Blood Count 3.94 M/mm3 (4.6-6.20); Red Cell Distribution Width 13.1 % (11.5-14.5); White Blood Count 4.1 K/mm3 (4.5-10.0)
[2020-01-14 06:35] VITALS: BP 131/85; PULSE 75; RESP 18; TEMP 36.1; O2SAT 95
[2020-01-14 06:51] LABS: Alanine Aminotransferase 38 U/L (4-50); Albumin Level 3.7 g/dL (3.5-5.1); Alkaline Phosphatase 73 U/L (38-126); Aspartate Amino Transferase 53 U/L (17-59); Bilirubin,Total 0.4 mg/dL (0.2-1.3); Blood Urea Nitrogen 48 mg/dL (9-20); Calcium 9.2 mg/dL (8.4-10.2); Carbon Dioxide 29 mmol/L (22-30); Chloride 98 mmol/L (98-107); Estimated CRCL calculation 33 ml/min; Estimated Glomerular Filt Rate 25; Glucose 113 mg/dL (75-110); Potassium 4.6 mmol/L (3.4-5.0); Sodium 137 mmol/L (137-145)
[2020-01-14 09:04] VITALS: PULSE 75
[2020-01-14] MEDS: carvediloL 25 MG TABLET PO (09:04)
[2020-01-14] MEDS: ASPIRIN 81 MG ENTERIC TABLET PO (09:04)
[2020-01-14] MEDS: CHOLECALCIFEROL 1,000 UNIT TABLET 1000 UNITS PO (09:04)
[2020-01-14] MEDS: HEPARIN SODIUM 5,000 UNITS/ML VIAL 5000 UNITS SUB-Q (09:06)
--- NOTE | 2020-01-14 09:30 | WPDCDIQUERY2 ---
CDI Query Clarification Request - Urine Legionelle pneumophilia Ag was detected - Community acquired pneumonia and Legionella P urine antigen + documented Please clarify if there is any clinical correlation between the Legionella P urine antigen detection and the pneumonia.
[2020-01-14 10:00] VITALS: BP 142/82; PULSE 77; RESP 18; TEMP 36.4; O2SAT 96
--- NOTE | 2020-01-14 10:12 | PCNWS ---
Weekly nutritional screen. Patient is tolerating current diet with adequate intake. No weight loss reported. No nutritional needs at this time.
--- NOTE | 2020-01-14 11:43 | PM.PNNEP ---
Progress Note: A&P Assessment and Plan (1) Essential hypertension: Code(s): I10 - Essential (primary) hypertension Status: Acute Assessment and Plan: Blood pressure is well controlled. He is on carvedilol only. He was on lisinopril before admission. He can stay off of this in till he has firmly established former or new baseline creatinine. From the kidney standpoint I think he can be discharged. (2) Chronic kidney disease, stage 4, severely decreased GFR: Code(s): N18.4 - Chronic kidney disease, stage 4 (severe) Status: Acute Assessment and Plan: baseline creatinine ~ 2.5 - 2.8mg/dl Renal ultrasound is unremarkable except for some cysts. Urine sodium is a bit low. He may have a component of dehydration. In addition, presumably due to diabetes, hypertension, IRINA, and age Complements, TOBIAS, Anca, COVID, hepatitis, influenza and DNa are negative. His creatinine seems to have reached a new baseline in the low threes. This may improve over time. He does not necessarily need to stay any longer from this standpoint. (3) Hernia: Code(s): K46.9 - Unspecified abdominal hernia without obstruction or gangrene (4) Abdominal aortic aneurysm dissection: Code(s): I71.02 - Dissection of abdominal aorta Status: Acute Assessment and Plan: No acute issues now. Additional Plan Subjective Date/time seen: 01/14/20 11:43 Interval history: Patient is alert. Feels okay. No cough. No shortness of breath. Review of Systems Cardiovascular: Cardiovascular: Reports no additional cardiovascular complaints Respiratory: Respiratory: Reports no additional respiratory complaints Gastrointestinal: Gastrointestinal: Reports no additional gastrointestinal complaints Genitourinary: Genitourinary: Reports no additional male genitourinary complaints Exam Narrative: Exam Narrative: Well developed well-nourished in no acute distress Lungs clear bilaterally Heart regular without rub Abdomen bowel sounds positive soft nontender Extremities no edema Skin no rash or subcu nodules Objective Data Vital Signs Vital Signs: Vital Signs - 24 hr 01/13/20 15:19 01/13/20 18:23 01/13/20 21:43 Temperature 36.8 C 36.7 C Pulse Rate 76 65 76 Respiratory Rate 16 16 Blood Pressure 94/69 L 134/82 Pulse Oximetry 96 96 01/13/20 21:48 01/14/20 02:14 01/14/20 06:35 Temperature 36.6 C 36.3 C L 36.1 C L Pulse Rate 76 80 75 Respiratory Rate 18 18 18 Blood Pressure 120/72 145/86 H 131/85 Pulse Oximetry 95 95 95 01/14/20 09:04 Temperature Pulse Rate 75 Respiratory Rate Blood Pressure Pulse Oximetry Intake/Output Intake/Output: Intake & Output 01/11/20 01/12/20 01/13/20 01/14/20 23:59 23:59 23:59 23:59 Intake Total 2340 2430 1670 780 Output Total 2475 1545 1725 550 Balance -135 885 -55 230 Meds/Results Medications: Active Medications Generic Name Dose Route Start Last Admin Trade Name Freq PRN Reason Stop Dose Admin Acetaminophen 650 mg 01/07/20 15:19 01/08/20 21:16 Tylenol Tablet PO 650 mg Q4H PRN Administration Mild Pain (1-3) or Fever Albuterol 2 puff 01/07/20 23:27 01/09/20 11:16 Proventil Hfa INHALATION 2 puff QIDRT PRN Administration Shortness Of Breath Aspirin 81 mg 01/08/20 09:00 01/14/20 09:04 Aspirin Ec PO 81 mg DAILY CLARITZA Administration Azithromycin 500 mg 01/13/20 21:00 01/13/20 21:44 Zithromax Tablet PO 500 mg HS CLARITZA Administration Carvedilol 25 mg 01/07/20 23:35 01/14/20 09:04 Coreg PO 25 mg Q12HR CLARITZA Administration Heparin Sodium (Porcine) 5,000 units 01/08/20 09:00 01/14/20 09:06 Heparin Sodium SUB-Q 5,000 units Q12HR CLARITZA Administration Lisinopril 10 mg 01/08/20 09:00 01/09/20 08:26 Prinivil PO 10 mg DAILY CLARITZA Administration Ondansetron HCl 4 mg 01/07/20 15:19 01/08/20 02:31 Zofran Inj IV PUSH 4 mg Q4H PRN Administration
[2020-01-14 18:15] LABS: Creatinine, Random Urine 227 mg/dL (20-320); Total Protein/Creatinine Ratio 559 mg/g creat (22-128)
--- NOTE | 2020-01-15 17:44 | PM.DS ---
DS: Diagnosis Admitting Diagnosis Admitting Diagnosis: Pneumonia, unspecified organism Discharge Diagnosis (1) Community acquired pneumonia: Qualifiers: Laterality: left Lung location: upper lobe of lung Qualified Code(s): J18.9 - Pneumonia, unspecified organism Code(s): J18.9 - Pneumonia, unspecified organism Status: Acute Assessment and Plan: COVID negative. Blood culture no growth.. Legionella P urine antigen + so, Legionella pneumonia diagnosis. Will finish 10 day course of azithromycin 500 daily receive days IV here (2) Acute respiratory failure with hypoxemia: Code(s): J96.01 - Acute respiratory failure with hypoxia Status: Acute Assessment and Plan: saturating 100% on room air, 01/13 and 96-98% at discharge. Improve rapidly (3) Chronic kidney disease, stage IV (severe): Code(s): N18.4 - Chronic kidney disease, stage 4 (severe) Status: Chronic Assessment and Plan: Acute on chronic renal failure. Creatinine from 4.7 now to 3.1 thought secondary to infection and pre renal azotemia Baseline 2.5-2.8. Will follow-up with Dr. Dixon (4) Elevated d-dimer: Code(s): R79.89 - Other specified abnormal findings of blood chemistry Status: Acute Assessment and Plan: Elevated with negative venous Doppler and low probability V/Q Probable all secondary to infectious process (5) Elevated troponin level: Code(s): R79.89 - Other specified abnormal findings of blood chemistry Status: Acute Assessment and Plan: No acute coronary syndrome. Echo showed no wall motion abnormalities with normal ejection fraction (6) Essential hypertension: Code(s): I10 - Essential (primary) hypertension Status: Acute Assessment and Plan: Blood pressure well controlled with Coreg alone. Lisinopril remains on hold with elevated creatinine and will follow-up with primary and Dr. Dixon DS: Summary Hospital Course Hospital Course: 64-year-old hypertensive black male with chronic renal failure admitted with increasing shortness of breath and pneumonia.. Hypoxic and had to be supported by O2. Placed on ceftriaxone and azithromycin. Blood cultures were no growth, nasal swab for COVID and influenza were negative. But urine antigen was positive for Legionella and Legionella pneumonia was diagnosed Patient had total IV p.o. of azithromycin while here for 7 days and will continue 3 more for total at 10 days treatment Creatinine with decreased from 4.7-3.1 and will follow-up Dr. Dixon in the near future with a base metabolic profile, BRITTNEE-inhibitor remains on hold Time Spent with Patient Time attestation: Total time spent providing and/or coordinating discharge services: 35 minutes Exam Narrative: Exam Narrative: Condition on discharge Blood pressure 142/82 pulse 76 saturating 96% on room air afebrile Lungs clear CV regular rate rhythm Abdomen soft nontender Extremities without edema Neuro alert pleasant cooperative no focal deficits DS: Data Data Completed and Pending Labs on day of discharge: Labs from last 24 hours 01/08/20 14:17 Ur Random Creatinine 227 U Random Total Protein 127 H Protein/Creatinin Ratio 559 H Urine Albumin 53 U [id number]-[id number] 2 U Cxldk-7-Pjhskfvf 16 U Beta Globulin 14 U Gamma Globulin 16 U Abnormal Prot Band 1 see below U Abnormal Prot Band 2 Not Reportable U Abnormal Prot Band 3 Not Reportable Urine PEP Interpret see below Discharge Plan Discharge Attending physician on discharge: Cedric Wagner Consulting providers: Claire Dixon ; Evelia Jiménez ; Junior Carrero ; Rajiv Castro ; Festus Palma Discharging Clinician: Cedric Wagner Patient Disposition: Home, Self-Care Activity: as tolerated Diet: renal and low sodium Patient Instructions: Antibiotic Form Stand Alone Forms: General Discharge Information Follow-up/Referrals: Kira Dixon
== END 2020-01-14 14:23 | disposition home or self-care (01) | DRG 177 ==
LOC: ANHED 15:54 → ANHICU 23:27 → ANHIMU 01-08 15:27 → ANH3MEDSUR 01-10 02:29 → ANHICU 01-15 12:17 → ANHIMU 01-15 12:17
PROVIDERS: Internal Medicine; Internal Medicine Nephrology; Physician Assistant; Admitting Provider Family Medicine; Emergency Provider Family Medicine; PCP Internal Medicine; Visit Provider Internal Medicine
DX: A48.1 Legionnaires' disease (principal); J96.01 Acute respiratory failure with hypoxia; N18.4 Chronic kidney disease, stage 4 (severe); N17.9 Acute kidney failure, unspecified; Z68.41 Body mass index [BMI] 40.0-44.9, adult; Z20.828 Contact with and (suspected) exposure to other viral communicable diseases; I12.9 Hypertensive chronic kidney disease with stage 1 through stage 4 chronic kidney disease, or unspecified chronic kidney disease; G47.33 Obstructive sleep apnea (adult) (pediatric); E66.01 Morbid (severe) obesity due to excess calories; K46.9 Unspecified abdominal hernia without obstruction or gangrene
CPT/HCPCS: 36415; 36600; 71045; 71046; 76775; 78580; 80048; 80053; 80069; 80074; 81050; 82436; 82570; 82728; 82805; 83036; 83520; 83605; 83615; 83735; 83874; 83880; 84100; 84155; 84156; 84165; 84166; 84300; 84484; 85025; 85380; 85610; 85999; 86021; 86038; 86140; 86160; 86225; 86706; 87040; 87070; 87205; 87449; 87635; 87804; 87899; 93005; 93306; 93970; 94640; 96365; 97116; 97161; 97165; 99285; A9270; A9540; J0456; J0696; J1644; J1940; J2405; J3475; J7030; U0003

== ENCOUNTER 2020-02-01 12:00 | Outpatient (CLI) | payer MEDICARE, SELFPAY ==
--- NOTE | ~2020-02-01 | XR_ITS ---
EXAMINATION: XR chest 2V DATE: 02/01/2020 12:17 INDICATION: Legionnaires disease. TECHNIQUE: Frontal and lateral views of the chest were obtained. COMPARISON: Chest 2 views 01/11/2020, CT abdomen and pelvis 05/28/2018 FINDINGS: There is mild atelectasis in the lower lung zones. No pleural effusion or pneumothorax. The heart size is normal. There is an aneurysm of descending thoracic aorta. There is a stent graft in t he aortic arch and proximal descending thoracic aorta. IMPRESSION: 1. Mild atelectasis in the lower lung zones. 2. Descending thoracic aortic aneurysm. Reviewed, dictated and finalized at location A.
== END 2020-02-01 12:01 | disposition home or self-care (01) ==
PROVIDERS: PCP Internal Medicine; Visit Provider Internal Medicine
DX: A48.1 Legionnaires' disease (principal); J98.11 Atelectasis; I71.4 Abdominal aortic aneurysm, without rupture
CPT/HCPCS: 71046

== ENCOUNTER 2020-04-26 09:12 | Inpatient (IN) | payer MEDICARE, MEDICAID, SELFPAY ==
[2020-04-26] VITALS (23 sets, daily range): BP systolic 129–189; BP diastolic 85–160; PULSE 72–141; RESP 11–24; TEMP 36.2–36.5; O2SAT 93–100; BMI 42.4
--- NOTE | ~2020-04-26 | US_ITS ---
EXAMINATION: US venous doppler [facility] DATE: 04/26/2020 12:21 INDICATION: Shortness of breath. Lower limb swelling. TECHNIQUE: Grayscale ultrasound images without and with compression and Doppler ultrasound images of the bilateral lower extremity veins were obtained. COMPARISON: 01/08/2020 FINDINGS: The visualized portions of right common femoral vein, profunda (deep) femoral vein, femoral vein, pop liteal vein, posterior tibial veins, peroneal veins, gastrocnemius vein and greater saphenous vein ou tflow are patent. There is nonocclusive noncompressible thrombus in the mid right lesser saphenous ve in at the mid to distal calf. Venous reflux is seen in most prominent in the right popliteal, peronea l and lesser saphenous veins and in the left vertebral and peroneal veins. Nonocclusive noncompressible thrombus in the left popliteal vein. The thrombus has relatively well-de fined linear echogenic margins which can be seen with chronic thrombus over this is not appreciated o n the imaging from the prior study. The visualized portions of left common femoral vein, profunda fem oral vein, femoral vein, posterior tibial veins, peroneal veins, gastrocnemius vein and greater saphe nous vein outflow are patent. Additional venous reflux is seen in the left popliteal and peroneal vei ns. IMPRESSION: 1. Age-indeterminate deep venous thrombosis in the left popliteal vein which has features suggestive of chronic thrombus but which is not appreciated on a relatively recent prior study dated 01/08/2020. 2. Additional nonocclusive thrombus in the lesser saphenous vein at the mid to distal right calf. Reviewed, dictated and finalized at location A. IMPRESSION: 1. Age-indeterminate deep venous thrombosis in the left popliteal vein which h as features suggestive of chronic thrombus but which is not appreciated on a re latively recent prior study dated 01/08/2020. 2. Additional nonocclusive thrombus in the lesser saphenous vein at the mid to distal right calf.
--- NOTE | ~2020-04-26 | NM_ITS ---
EXAMINATION: NM pulmonary perfusion DATE: 04/27/2020 12:16 INDICATION: Shortness of breath. Lower limb swelling. Deep venous thrombosis. TECHNIQUE: 5.5 mCi Tc-99m MAA by intravenous route. Scintigraphic images of the chest were obtained. COMPARISON: Chest radiograph dated 04/26/2020 FINDINGS: Perfusion defect in the posterior right lower lung on the RPO image with peripheral stripe sign which remains low probability for pulmonary embolism and likely represents the shadow of the right hilum. Small perfusion defect in the lateral basilar segment of the left lower lobe and moderate sized perfu maureen defect in the posterior basilar segment of the right lower lobe with corresponding radiographic opacities the left lung base on the prior radiograph. Decrease in size of a now small perfusion defec t without corresponding radiographic opacity in the posterior segment of the left upper lobe. IMPRESSION: 1. Intermediate probability for pulmonary embolism. Reviewed, dictated and finalized at location A.
--- NOTE | ~2020-04-26 | XR_ITS ---
XR chest 2V DATE: 04/26/2020 09:44 INDICATION: Shortness of breath TECHNIQUE: AP and lateral views COMPARISON: 02/01/2020 PA and lateral chest FINDINGS: Again noted is a stent graft of the aortic arch and proximal descending thoracic aorta and aneurysm of the descending thoracic aorta. Cardiomegaly. There is pulmonary vascular redistribution which may indicate mild pulmonary venous hypertension. The re is prominence of the fissures suggesting subpleural edema. Small pleural effusions are suggested. Minimal atelectasis may be present at the lung bases. No pulmonary consolidation. No pneumothorax. IMPRESSION: Mild congestive changes since 02/01/2020 Cardiomegaly Descending thoracic aortic aneurysm; stent graft of aortic arch and proximal descending thoracic aort a Reviewed, dictated and finalized at location B. IMPRESSION: Mild congestive changes since 02/01/2020 Cardiomegaly Descending thoracic aortic aneurysm; stent graft of aortic arch and proximal de scending thoracic aorta
--- NOTE | 2020-04-26 09:26 | ECG_ITS ---
Measurements Intervals [place] Rate: 76 P: IA: 0 QRS: 8 QRSD: 113 T: 72 QT: 385 QTc: 433 Interpretive Statements ATRIAL FLUTTER INTRAVENTRICULAR CONDUCTION DELAY DELAYED PRECORDIAL R/S TRANSITION BASELINE ARTIFACT- II, III ABNORMAL ECG Electronically Signed On 04-26-2020 10:45:36 CDT by Rajiv Castro D.O.
[2020-04-26 09:34] LABS: Basophils Percent Auto 0.2 % (0.2-1.2); Eosinophils Absolute Auto 0.1 K/mm3 (0-0.3); Eosinophils Percent Auto 1.2 % (0-4.4); Hematocrit 43.9 % (42.0-52.0); Hemoglobin 13.3 g/dL (14.0-18.0); Immature Granulocyte Absolute 0.01 K/mm3 (0.00-0.031); Immature Granulocyte Percent A 0.2 % (0-0.5); Lymphocytes Absolute Auto 0.79 K/mm3 (0.9-3.2); Lymphocytes Percent Auto 19.6 % (18.3-44.2); Mean Corpuscular HGB Conc 30.3 g/dl (32-36); Mean Corpuscular Hemoglobin 28.8 pg (26-34); Mean Platelet Volume 12.6 fl (7.4-10.4); Monocytes Absolute Auto 0.5 K/mm3 (0.1-0.6); Monocytes Percent Auto 11.4 % (2.6-8.5); Neutrophils Absolute Auto 2.7 K/mm3 (1.3-6.7); Neutrophils Percent Auto 67.4 % (45.5-73.1); Platelet Count Result 116 k/mm3 (150-375); Red Blood Count 4.62 M/mm3 (4.6-6.20); Red Cell Distribution Width 13.5 % (11.5-14.5)
[2020-04-26 09:47] LABS: Blood Urea Nitrogen 38 mg/dL (9-20); Calcium 8.8 mg/dL (8.4-10.2); Carbon Dioxide 24 mmol/L (22-30); Chloride 108 mmol/L (98-107); Estimated CRCL calculation 34 ml/min; Estimated Glomerular Filt Rate 25; Glucose 95 mg/dL (75-110); Sodium 139 mmol/L (137-145)
[2020-04-26 09:48] LABS: Alveolar/Arterial O2 Gradient 23.5 mmHg; Base Excess ABG -2.7 mEq/l (+/-2.0); Carboxyhemoglobin 0.7 % THb (0-2.0); Fractional Inspired Oxygen 21 %; Methemoglobin ABG 0.2 %THb (0-1.5); Oxygen Content ABG 17.5 %vol (16.0-22.0); Oxygen Saturation ABG 95.9 % (95.0-100.0); Oxyhemoglobin 94.6 % THb (90.0-100.0); PCO2 ABG 37.7 mmHg (35.0-45.0); PO2 ABG 81.1 mmHg (80.0-100.0); PO2 FiO2 Ratio Arterial Blood 3.86 %; Reduced Hemoglobin 4.5 %THb (0-5.0); Total Hemoglobin 13.1 g/dL (12.0-18.0); pH ABG 7.383 (7.350-7.450)
[2020-04-26 09:49] LABS: Device ROOM AIR; Modified Allen's Test Pass; Site Drawn RIGHT RADIAL
[2020-04-26 10:12] LABS: INR 1.1; Partial Thromboplastin Time 27.3 SECONDS (22.3-36.8); Prothrombin Time 14.2 Seconds (11.1-14.7)
[2020-04-26 10:13] LABS: Alanine Aminotransferase 16 U/L (4-50); Albumin Level 3.9 g/dL (3.5-5.1); Alkaline Phosphatase 57 U/L (38-126); Aspartate Amino Transferase 18 U/L (17-59); Bilirubin,Total 0.3 mg/dL (0.2-1.3); Lactic Acid Reflex 0.7 mmol/L (0.7-2.1)
[2020-04-26 10:25] LABS: NT Pro B Type Natriuretic Pept 2070 PG/ML (5-100)
--- NOTE | 2020-04-26 10:38 | ED.SOB ---
HPI - SOB/Dyspnea General Chief Complaint: Shortness of Breath/Dyspnea Stated Complaint: sob Time Seen by Provider: 04/26/20 09:55 Source: patient Mode of arrival: ambulatory Limitations: no limitations History of Present Illness HPI Narrative: This patient is a 65 year old male with history of hypertension, aortic dissections s/p repair who presents for evaluation of shortness of breath. He states for 3 weeks he has had shortness of breath with walking up stairs and walking around the store. He also reports more fatigue so he called his PCP yesterday for an appointment. He was being evaluated in Dr. Saba's office this morning, and he was referred to ER for new onset atrial flutter. He denies cough, fever, chest pain, palpitations, nausea or vomiting. He denies any sick contacts. He reports chronic leg swelling and it is always worse on his right leg. He denies any increase in edema. He denies leg pain. His assembler tester is Dr. Duran for observation of his aortic dissection. MD elicited complaint: shortness of breath Related Data Home Medications Medication Instructions Recorded Confirmed aspirin [Aspirin Low Dose] 81 mg PO DAILY 01/07/20 04/26/20 cholecalciferol (vitamin D3) 25 mcg PO DAILY 01/07/20 04/26/20 carvedilol 25 mg tablet 25 mg PO DAILY tablet 04/26/20 04/26/20 hydralazine 25 mg PO DAILY 04/26/20 04/26/20 Allergies Allergy/AdvReac Type Severity Reaction Status Date / Time iohexol Allergy Itching Verified 04/26/20 18:59 [From contrast - CT, X-RAY] Review of Systems Review of Systems: All systems reviewed & are unremarkable except as noted in HPI and below Constitutional: Constitutional: Denies chills and Denies fever(s) ENT: Denies dysphagia and Denies sore throat Cardiovascular: Cardiovascular: Denies chest pain, Denies rapid heart rate and Denies slow heart rate Respiratory: Respiratory: Denies cough, Reports dyspnea and Denies wheezing Gastrointestinal: Gastrointestinal: Denies abdominal pain, Denies diarrhea, Denies nausea and Denies vomiting Neurologic: Denies dizziness PMFSH Past Medical History Medical History Abdominal aortic aneurysm dissection Chronic kidney disease, stage 4, severely decreased GFR Patient of Dr. Dixon. Baseline creatinine unknown to the patient. Depression with anxiety Erectile dysfunction Essential hypertension Obstructive sleep apnea treated with BiPAP Paralysis of both lower limbs Temporary Posttraumatic stress disorder Spinal stenosis of lumbar region at multiple levels Strain of left knee Thoracic aortic dissection 2004 Surgical History Surgical History H/O spinal fusion L4 to L5 in 2006 History of inguinal herniorrhaphy Right 2006 History of thoracic aortic aneurysm repair In 2004 endoluminal stent in the descending thoracic aorta Family History Family History Mother Family history of cardiovascular disease, Onset Age: 89 Diabetes mellitus, Onset Age: 89 Hx of CABG Sibling Diabetes mellitus Father Diabetes mellitus Social History Social History Social History: Surrogate decision maker: Lizeth Rodriguez, sister. Code status: Full code. Smoking status: Never smoker Alcohol intake: current Drinks per week: 4 Substance use: never Additional living arrangements comments: Lives with older sister in [place]. 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 Gender identity (if verbalized by the patient): Male Spiritual care concerns: No Agree to blood products: No Exam Const: General: no acute distress and alert Orientation/consciousness: patient oriented x3 HENMT: Head: normocephalic and atraumatic Face and sinus: face symmetric Throat: p
--- NOTE | 2020-04-26 11:45 | PC.NURSE ---
Pt taken to ultrasound at this time on media monitor
[2020-04-26] MEDS: FUROSEMIDE INJ 40 MG/4 ML VIAL IV PUSH (13:49)
[2020-04-26] MEDS: HEPARIN SODIUM 5,000 UNITS/ML VIAL 9000 UNITS IV PUSH (13:59)
[2020-04-26] MEDS: HEPARIN SOD/D5W 100 UNITS/ML 25,000 UNITS/250 ML BAG 15 UNITS IV CONT (14:00)
[2020-04-26] MEDS: hydrALAZINE HCL 20 MG/ML VIAL IV PUSH (14:19)
--- NOTE | 2020-04-26 15:15 | PC.NURSE ---
This patient, Jude Bustillo Jr., was admitted to IMU Room 211-01. Patient/family oriented to hospital policies and general routines including ID bracelet, bed and alarms, visiting hours, pain management, procedures, bathroom and other care routines, personal items, smoking policy, room service/diet, and visiting hours. Valuables list has been completed. Information on how to activate the Rapid Response Team has been discussed. Patient/Family are encouraged to report perceived risks to care and to ask questions if they do not understand what they are told or what they should do.
--- NOTE | 2020-04-26 18:21 | PM.CNCAR ---
Assessment and Plan Assessment and plan (1) Atrial flutter: Code(s): I48.92 - Unspecified atrial flutter Status: Acute Assessment and Plan: Of unknown duration. Heart rate is controlled at rest. Accelerates into the 130s to 140s with activity. Started on a heparin drip for the new findings of DVT. Start Metoprolol succinate 50 mg daily 1st dose now. He has been taking carvedilol 25 mg but only once a day. Check TSH with reflex Check an echocardiogram with Doppler. (2) Shortness of breath: Code(s): R06.02 - Shortness of breath Status: Acute Assessment and Plan: He has been short of breath for approximately 3 weeks. This is been progressively getting worse. Breathing is already better with the furosemide he received in the emergency room. Blood pressure was extremely elevated on admission. He has only been taking 25 mg of carvedilol per day. He also decreased the hydralazine recently started by Dr. Dixon to only once a day as a gave him constipation. Echo as above. (3) Chronic kidney disease, stage IV (severe): Code(s): N18.4 - Chronic kidney disease, stage 4 (severe) Status: Chronic Assessment and Plan: Dr. Dixon follows him as an outpatient. His renal function is most likely at baseline. Blood pressure control is imperative. (4) Essential hypertension: Code(s): I10 - Essential (primary) hypertension Status: Acute Assessment and Plan: Not well controlled on admission. Improved with diuretics. Obviously he will need some adjustment in his medications. Will try to get most of his meds to be once a day as he seems to have difficulty with b.i.d. dosing (5) Abdominal aortic aneurysm dissection: Code(s): I71.02 - Dissection of abdominal aorta Status: Acute Assessment and Plan: Followed by [facility]. CT scan done on 03/15/2020: Increased size of fusiform thoracoabdominal aortic aneurysm measuring up to 67 x 64 mm, previously 59 x 54 mm. Stable descending thoracic aortic aneurysm status post endoluminal repair. Interval increase in size of to intermediate density exohytic lesion in the left kidney with the largest measuring 2 cm. These are intermediate and a renal ultrasound is recommended to evaluate for solid component. Of note there are several low-density cysts in both kidneys. Additional Plan Discussed with Dr. Duran 0804/27/2020 This document was completed by using [employer] speech recognition software, therefore, general intern variances may occur. History of Present Illness History of Present Illness Consult date/time: 04/26/20 18:21 Requesting physician: Joy Iyer MD Consult reason: Other (atrial flutter) Reason For Visit: chf,new onset aflutter Narrative: 65 year old male followed by Dr Duran in the office for hypertension, hypertensive heart disease and history of thoracic aortic dissection. He was sent to the emergency room by his Primary Care Provider as he presented to their office with 3 week history of shortness of breath. He was found to be in atrial flutter. He was referred to Dr. Duran , however he could not be seen in the office. The EKG done his morning revealed atrial flutter at a rate of 76 beats per minute. He reports a 3 week history of progressive shortness of breath. It is now more difficult to go up and down steps. He denied any orthopnea or PND. He states it does take him some more time to get comfortable with his CPAP than it did previously. He denied any chest pain, pressure, tightness or squeezing. No lightheadedness, dizziness or syncope. No palpitations. Lower extremity edema on the right leg is slightly more than his chronic edema. He has had swelling in the right leg since
--- NOTE | 2020-04-26 19:45 | PM.IMHP ---
H&P: HPI History of Present Illness Date/Time: 04/26/20 19:45 Chief complaint: chf,new onset aflutter Narrative: This is a pleasant 65 year old male with known history of HTN and thoracic aortic dissection that is being observed by Cardiology who presented to the hospital with a complaint of 3 weeks of ongoing shortness of breath. The patient's shortness of breath occurs at rest and even more with activity. He admits that he mostly just goes to the food store and doesn't do any other physical activity. Most of the time is spent sitting at his desk working on his computer. He denies any fevers, chills, cough, worsening LE swelling, nasuea, vomiting, chest pain, palpitations, sore throat, abdominal pain, dysuria, hematuria, or rectal bleeding. 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 He also admits that he is supposed to take Coreg twice daily but only takes it once daily because he doesn't like how it makes him feel. Tonight in the ER the patient was found to be in atrial flutter with uncontrolled HTN of 180s/120s mm Hg. The patient was treated with IV hydralazine. Doppler U/S LE revealed an age-indeterminate deep venous thrombosis in the left popliteal vein and a nonocclusive thrombus in the lesser saphenous vein at the mid to distal right calf. The patient has no previous history of blood clots or atrial flutter. He was started on IV heparin for anticoagulation and admitted to the hospital for further care. He has no other complaints at this time. Review of Systems Review of Systems: All systems reviewed & are unremarkable except as noted in HPI and below PMFSH Past Medical History Medical History Abdominal aortic aneurysm dissection Chronic kidney disease, stage 4, severely decreased GFR Patient of Dr. Dixon. Baseline creatinine unknown to the patient. Depression with anxiety Erectile dysfunction Essential hypertension Obstructive sleep apnea treated with BiPAP Paralysis of both lower limbs Temporary Posttraumatic stress disorder Spinal stenosis of lumbar region at multiple levels Strain of left knee Thoracic aortic dissection 2004 Surgical History Surgical History H/O spinal fusion L4 to L5 in 2006 History of inguinal herniorrhaphy Right 2006 History of thoracic aortic aneurysm repair In 2005 endoluminal stent in the descending thoracic aorta Family History Family History Mother Family history of cardiovascular disease, Onset Age: 89 Diabetes mellitus, Onset Age: 89 Hx of CABG Sibling Diabetes mellitus Father Diabetes mellitus Social History Social History Social History: Surrogate decision maker: Lizteh Rodriguez, sister. Code status: Full code. Smoking status: Never smoker Alcohol intake: current Drinks per week: 4 Substance use: never Additional living arrangements comments: Lives with older sister in [place]. Additional occupation/education comments: [employer]. Gender identity (if verbalized by the patient): Male Spiritual care concerns: No Agree to blood products: No Meds Home Medications and Allergies Home Medications Medication Instructions Recorded Confirmed Type aspirin [Aspirin Low Dose] 81 mg PO DAILY 01/07/20 04/26/20 History cholecalciferol (vitamin D3) 25 mcg PO DAILY 01/07/20 04/26/20 History hydrochlorothiazide 25 mg tablet 25 mg PO DAILY #90 tablet 04/25/20 04/26/20 Rx carvedilol 25 mg tablet 25 mg PO DAILY tablet 04/26/20 04/26/20 History hydralazine 25 mg PO DAILY 04/26/20 04/26/20 History Allergies Allergy/AdvReac Type Severity Reaction Status Date / Time iohexol Allergy Itching Verified 04/26/20 18:59 [F
[2020-04-26] MEDS: METOPROLOL SUCCINATE EXT REL 50 MG TABCR PO (21:03)
[2020-04-27] VITALS (17 sets, daily range): BP systolic 139–163; BP diastolic 80–113; PULSE 71–95; RESP 16–20; TEMP 36.1–37; O2SAT 95–98
[2020-04-27 03:31] LABS: Basophils Percent Auto 0.3 % (0.2-1.2); Eosinophils Absolute Auto 0.1 K/mm3 (0-0.3); Eosinophils Percent Auto 1.8 % (0-4.4); Hemoglobin 13.2 g/dL (14.0-18.0); Immature Granulocyte Absolute 0.01 K/mm3 (0.00-0.031); Immature Granulocyte Percent A 0.3 % (0-0.5); Lymphocytes Percent Auto 23.4 % (18.3-44.2); Mean Corpuscular HGB Conc 31.4 g/dl (32-36); Mean Corpuscular Hemoglobin 28.9 pg (26-34); Mean Corpuscular Volume 91.9 fl (80-100); Mean Platelet Volume 12.8 fl (7.4-10.4); Monocytes Absolute Auto 0.5 K/mm3 (0.1-0.6); Monocytes Percent Auto 12.2 % (2.6-8.5); Neutrophils Absolute Auto 2.4 K/mm3 (1.3-6.7); Platelet Count Result 129 k/mm3 (150-375); Red Blood Count 4.57 M/mm3 (4.6-6.20); Red Cell Distribution Width 13.5 % (11.5-14.5); White Blood Count 3.9 K/mm3 (4.5-10.0)
[2020-04-27 03:38] LABS: Anion Gap 13.7 mmol/L (7-16); Blood Urea Nitrogen 38 mg/dL (9-20); Calcium 9.1 mg/dL (8.4-10.2); Carbon Dioxide 23 mmol/L (22-30); Chloride 106 mmol/L (98-107); Estimated CRCL calculation 33 ml/min; Estimated Glomerular Filt Rate 25; Glucose 102 mg/dL (75-110); Potassium 4.7 mmol/L (3.4-5.0); Sodium 138 mmol/L (137-145)
[2020-04-27 03:39] LABS: Partial Thromboplastin Time 74.3 SECONDS (22.3-36.8)
[2020-04-27 04:43] LABS: Thyroid Stimulating Hormone Reflex 0.862 uIU/mL (0.465-4.68)
[2020-04-27 06:19] LABS: Troponin I 0.034 ng/mL (0.000-0.034)
--- NOTE | 2020-04-27 06:32 | PC.NURSE ---
This patient, Jude Bustillo Jr., was transferred to [[id number] ] on 04/27/20 at 0632. Personal belongings sent with patient. Belongings list checked and signed with receiving [ ]. Report given to [Ann almanza ]. Appropriate documentation sent with patient.
--- NOTE | 2020-04-27 06:37 | PC.NURSE ---
received pt from imu per bed. voices no c/o
[2020-04-27] MEDS: HEPARIN SOD/D5W 100 UNITS/ML 25,000 UNITS/250 ML BAG 15 UNITS IV CONT (06:47)
[2020-04-27] MEDS: CHOLECALCIFEROL 1,000 UNIT TABLET 1000 UNITS PO (08:23)
[2020-04-27] MEDS: METOPROLOL SUCCINATE EXT REL 50 MG TABCR PO (08:23)
--- NOTE | 2020-04-27 09:00 | ECHO_ITS ---
Patient Info Name: Jude Bustillo Age: 65 years : 1955 Gender: Male Ht: 74 in Wt: 330 lbs BSA: 2.86 m2 HR: 72 bpm BP: 147 / 89 mmHg Heart Rhythm: Atrial Flutter Technical Quality: Good Exam Date: 04/27/2020 10:10 AM Exam Location: [facility] Pulmonary Patient Status: Inpatient Admit Date: 04/26/2020 Staff Ordering Physician: Krystina Pacheco APRN Display Department Manager: Michael Kebede RDCS Attending Provider: Erica Do PA-C Referring Physician: Junior SHAH; Exam Type: CA echo doppler color flow Study Info Indications 427.32 - Atrial flutter Complete two-dimensional, color flow and Doppler transthoracic echocardiogram is performed. Strain analysis performed. History/Risk Factors Atrial Flutter; CHF, CKD4, SOB. Summary 1. There is mild concentric increased left ventricular wall thickness. 2. Left ventricular systolic function is normal, estimated at 55-60%. 3. There is mild mitral valve regurgitation. 4. The aortic valve is normal. 5. Mild biatrial dilation. Left Ventricle Left ventricular chamber dimension is normal. Left ventricular systolic function is normal, estimated at 55-60%. There is mild concentric increased left ventricular wall thickness. Right Ventricle Right ventricular chamber dimension is normal. Left Atria Left atrial chamber dimension is mildly enlarged. Right Atria Right atrial chamber dimension is mildly enlarged. Aortic Valve The aortic valve is normal. Pulmonic Valve The pulmonic valve is not well visualized. Mitral Valve The mitral valve has normal leaflets. There is mild mitral valve regurgitation. The mitral valve annulus is mildly calcified. Tricuspid Valve The tricuspid valve leaflets are normal. Pericardium/Pleural The pericardium appears normal. Aorta Aortic root is modestly dilated. Left Ventricular Outflow Tract Name Value Normal LVOT 2D LVOT Diameter 2.2 cm LVOT Doppler LVOT Peak Gradient 2 mmHg LVOT Mean Gradient 1 mmHg LVOT VTI 13 cm LVOT VTI/AV VTI Ratio 0.7 LVOT Stroke Volume 51 ml LVOT CO 3.7 l/min LVOT CI 1.3 l/min/m2 Mitral Valve Name Value Normal MV Doppler MV Decel [place] 575 cm/s2 MV PHT 54 ms MV Area (PHT) 4.1 cm2 4.0-5.0 MV Diastolic Function MV E Peak Velocity 106 cm/s MV A Peak Velocity 47 cm/s MV E/A 2.2 MV Decel Time 185 ms
[2020-04-27] MEDS: amLODIPine BESYLATE 5 MG TABLET 10 MG PO (14:03)
--- NOTE | 2020-04-27 14:14 | PM.IMPN ---
Progress Note: A&P Assessment and Plan (1) Atrial flutter: Qualifiers: Atrial flutter type: unspecified Qualified Code(s): I48.92 - Unspecified atrial flutter Code(s): I48.92 - Unspecified atrial flutter Status: Acute Assessment and Plan: May be secondary to uncontrolled HTN verses DVT/PE. It is unknown how long patient has been in atrial flutter. Cardiology evaluated the patient and started him on metoprolol succinate 50 mg once a day which has been controlling his rate very well Currently he is anticoagulated on heparin and waiting for Cardiology to evaluate and recommend what he could be discharged on TSH was normal. Echocardiogram showed There is mild concentric increased left ventricular wall thickness. Left ventricular systolic function is normal, estimated at 55-60%. There is mild mitral valve regurgitation. The aortic valve is normal. Mild bi-atrial dilation. The patient is feeling well at this time. Continue monitoring the patient's symptoms. Continue telemetry as per cardiology's recommendations. Cardiology's input is greatly appreciated. (2) DVT (deep venous thrombosis): Qualifiers: Affected thrombotic vein of extremity: popliteal Chronicity: unspecified DVT location: lower extremity Laterality: bilateral Qualified Code(s): I82.433 - Acute embolism and thrombosis of popliteal vein, bilateral Code(s): I82.409 - Acute embolism and thrombosis of unspecified deep veins of unspecified lower extremity Status: Acute Assessment and Plan: Patient found to a DVT to his left popliteal and right distal calf which is nonocclusive. he was started on IV heparin. Will continue IV heparin at this time and transition to oral anticoagulant as per cardiology. Patient had a V/Q scan which showed he has intermittent probability of having a PE, he is already being treated for a DVT and we will continue treatment. Continue monitoring the patient's symptoms. Cardiology's input is greatly appreciated. (3) Uncontrolled hypertension: Code(s): I10 - Essential (primary) hypertension Status: Acute Assessment and Plan: Secondary to medical nonadherence. Cardiology is working on medication adjustments since he does not like taking medications more than 1 time per day continue metoprolol succinate and Cardiology added Norvasc to his regimen Monitor blood pressure. Continue home antihypertensives. PRN IV antihypertensives overnight as needed. (4) Acute dyspnea: Code(s): R06.00 - Dyspnea, unspecified Status: Acute Assessment and Plan: May be secondary to atrial flutter, mild pulmonary congestion from aflutter vs. pulmonary embolism. he was given a dose of IV Lasix on arrival he appears euvolemic at this time V/Q scan shows intermittent probability of PE and we are ready treating for DVT with IV heparin atrial flutter is now rate controlled and further evaluated by cardiology he states he is not having any more shortness of breath but states this was only whenever he would carry groceries up a flight of stairs. will see what Cardiology recommends to continue monitoring his symptoms. (5) Chronic kidney disease, stage IV (severe): Code(s): N18.4 - Chronic kidney disease, stage 4 (severe) Status: Chronic Assessment and Plan: Cr appears to be close to baseline. Creatinine is 3.1 this morning. Stable from baseline. Monitor renal function, avoid nephrotoxic agents. Renally dose medications. (6) Obstructive sleep apnea treated with BiPAP: Code(s): G47.33 - Obstructive sleep apnea (adult) (pediatric) Status: Chronic Assessment and Plan: Continu
--- NOTE | 2020-04-27 14:51 | PM.PNCARD ---
Progress Note: A&P Additional Plan 65-year-old man with atrial flutter of uncertain chronicity likely contributing to symptoms of dyspnea. He is however hemodynamically stable. Would recommend shifting him from intravenous heparin to renally dosed apixaban. He should be followed in the office and attempt DC cardioversion after 4-6 weeks of systemic anticoagulation Garfield Duran MD [facility] Subjective Date/time seen: Date of service:04/27/20 14:51 Interval history: Follow-up visit in 65-year-old man found to be in atrial flutter with controlled ventricular response. Minimally symptomatic with shortness of breath for 2-3 weeks. Otherwise hemodynamically stable, not tachycardic. Patient has a history hypertension and chronic type B aortic dissection Exam Const: General: comfortable and no acute distress HENMT: Mouth: Yes moist mucous membranes Eyes: Sclera: sclerae normal Pupils: Equal, round and reactive pupils present Neck: Neck: supple and no JVD Thyroid: thyroid normal Other: carotid impulses normal bilaterally no audible bruits Resp: Effort & Inspection: normal respiratory effort Auscultation: clear to auscultation bilaterally Cardio: Rate: regular rate Rhythm: regular rhythm Other: rate controlled atrial flutter GI: Auscultation: normal bowel sounds Skin: General skin exam: normal color Neuro: Cognition (Neuro): normal cognition Extrem: General: normal to inspection Objective Data Vital Signs Vital Signs: Vital Signs - 24 hr 04/26/20 15:03 04/26/20 15:15 04/26/20 16:00 Temperature 36.3 C L Pulse Rate 97 100 87 Respiratory Rate 18 20 Blood Pressure 129/104 H 174/91 H Pulse Oximetry 95 100 04/26/20 18:00 04/26/20 20:00 04/26/20 20:18 Temperature 36.2 C L Pulse Rate 111 H 103 H 84 Respiratory Rate 22 H 18 Blood Pressure 175/85 H Pulse Oximetry 94 93 04/26/20 20:46 04/26/20 21:03 04/26/20 22:00 Temperature Pulse Rate 84 93 113 H Respiratory Rate 22 H Blood Pressure Pulse Oximetry 94 04/26/20 23:59 04/27/20 00:18 04/27/20 02:00 Temperature 36.7 C Pulse Rate 110 H 72 76 Respiratory Rate 20 20 Blood Pressure 148/113 H Pulse Oximetry 94 96 04/27/20 04:00 04/27/20 04:14 04/27/20 06:00 Temperature 36.3 C L Pulse Rate 76 71 78 Respiratory Rate 20 18 Blood Pressure 139/80 Pulse Oximetry 96 98 04/27/20 06:42 04/27/20 06:53 04/27/20 08:00 Temperature 36.8 C Pulse Rate 73 73 79 Respiratory Rate 16 Blood Pressure 147/89 H Pulse Oximetry 97 04/27/20 08:23 04/27/20 09:19 04/27/20 12:00 Temperature 36.3 C L Pulse Rate 73 73 85 Respiratory Rate 20 Blood Pressure 157/103 H Pulse Oximetry 98 04/27/20 12:30 04/27/20 13:35 Temperature 36.1 C L Pulse Rate 74 Respiratory Rate 18 Blood Pressure 160/106 H 163/109 H Pulse Oximetry 95 Intake/Output Intake/Output: Intake & Output 04/24/20 04/25/20 04/26/20 04/27/20 23:59 23:59 23:59 23:59 Intake Total 294 556 Output Total 1950 1100 Balance -1901 -544 Meds/Results Medications: Active Medications Generic Name Dose Route Start Last Admin Trade Name Freq PRN Reason Stop Dose Admin Amlodipine Besylate 10 mg 04/27/20 13:10 04/27/20 14:03 Norvasc PO 10 mg QAM CLARITZA Administration Apixaban 2.5 mg 04/27/20 21:00 Eliquis PO Q12HR [facility] Metoprolol Succinate 50 mg 04/26/20 18:35 04/27/20 08:23 Toprol Xl PO 50 mg QAM CLARITZA Administration Ondansetron HCl 4 mg 04/26/20 13:38 Zofran Inj IV PUSH Q4H PRN Nausea Vitamin D 1,000 unit 04/27/20 09:00 04/27/20 08:23 Vitamin D PO 1,000 unit DAILY CLARITZA Administration Radiology Results: ITS Impressions Chest X-Ray 04/26/20 09:47 IMPRESSION: Mild congestive changes since 02/01/2020 Cardiomegaly Descending thoracic aortic aneurysm; stent graft of aortic arch and proximal descending thoracic aorta Venous Doppler Study
[2020-04-27] MEDS: APIXABAN 2.5 MG TABLET PO (20:10)
[2020-04-28] VITALS: PULSE 84
[2020-04-28 04:00] VITALS: PULSE 93
[2020-04-28 05:30] LABS: Hematocrit 43.8 % (42.0-52.0); Hemoglobin 13.6 g/dL (14.0-18.0); Mean Corpuscular HGB Conc 31.1 g/dl (32-36); Mean Corpuscular Hemoglobin 28.6 pg (26-34); Mean Platelet Volume 12.9 fl (7.4-10.4); Platelet Count Result 141 k/mm3 (150-375); Red Blood Count 4.76 M/mm3 (4.6-6.20); Red Cell Distribution Width 13.4 % (11.5-14.5); White Blood Count 3.2 K/mm3 (4.5-10.0)
[2020-04-28 05:37] VITALS: BP 145/87; PULSE 74; RESP 12; TEMP 36.8; O2SAT 97
[2020-04-28 05:41] LABS: Partial Thromboplastin Time 29.6 SECONDS (22.3-36.8)
[2020-04-28 05:48] LABS: Anion Gap 11.3 mmol/L (7-16); Blood Urea Nitrogen 40 mg/dL (9-20); Calcium 8.8 mg/dL (8.4-10.2); Carbon Dioxide 26 mmol/L (22-30); Chloride 103 mmol/L (98-107); Estimated CRCL calculation 33 ml/min; Estimated Glomerular Filt Rate 25; Glucose 105 mg/dL (75-110); Potassium 4.3 mmol/L (3.4-5.0); Sodium 136 mmol/L (137-145)
[2020-04-28 07:55] VITALS: PULSE 110
[2020-04-28] MEDS: APIXABAN 5 MG TABLET 10 MG PO (07:55)
[2020-04-28] MEDS: METOPROLOL SUCCINATE EXT REL 50 MG TABCR PO (07:55)
[2020-04-28] MEDS: CHOLECALCIFEROL 1,000 UNIT TABLET 1000 UNITS PO (07:55)
[2020-04-28] MEDS: amLODIPine BESYLATE 5 MG TABLET 10 MG PO (07:55)
[2020-04-28 08:00] VITALS: PULSE 115
--- NOTE | 2020-04-28 11:08 | PM.PNCARD ---
Progress Note: A&P Assessment and Plan (1) Atrial flutter: Qualifiers: Atrial flutter type: unspecified Qualified Code(s): I48.92 - Unspecified atrial flutter Code(s): I48.92 - Unspecified atrial flutter Status: Acute Assessment and Plan: -Of unknown duration. -Heart rate is controlled. -Transitioned to apixaban for anticoagulation at the dose for treatment of his DVT. Found to not have Part D coverage. He was given the discount card for 1 month free. Likely will need to transition to warfarin at some point. Hopefully he can be sampled either by his primary care provider or Dr. Duran to get him through an attempt at cardioversion. -Follow-up with Dr. Duran on June 02, 2020 to discuss cardioversion. Stressed the importance of not missing any doses of the apixaban prior to that appointment. Verbalized understanding. -Continue Metoprolol succinate 50 mg daily -TSH 0.86 -Echocardiogram 04/27/2020: Mild concentric increased left ventricular wall thickness. Left ventricular systolic function is normal, estimated at 55-60%. Mild mitral valve regurgitation. The aortic valve is normal. Mild biatrial dilation. (2) Shortness of breath: Code(s): R06.02 - Shortness of breath Status: Acute Assessment and Plan: Denied any shortness of breath today. Lungs are clear. Echo as above. (3) Chronic kidney disease, stage IV (severe): Code(s): N18.4 - Chronic kidney disease, stage 4 (severe) Status: Chronic Assessment and Plan: Dr. Dixon follows him as an outpatient. His renal function is most likely at baseline. Blood pressure control is imperative. Amlodipine added to the Toprol XL yesterday. Restart hydrochlorothiazide 25 mg daily. (4) Essential hypertension: Code(s): I10 - Essential (primary) hypertension Status: Acute Assessment and Plan: Was taking carvedilol only once a day. Hydralazine also decreased to once a day as b.i.d. dosing gave him constipation. Medications have been changed. Needs to be followed closely as an outpatient. (5) Abdominal aortic aneurysm dissection: Code(s): I71.02 - Dissection of abdominal aorta Status: Acute Assessment and Plan: Followed by [facility]. CT scan done on 03/15/2020: Increased size of fusiform thoracoabdominal aortic aneurysm measuring up to 67 x 64 mm, previously 59 x 54 mm. Stable descending thoracic aortic aneurysm status post endoluminal repair. Interval increase in size of to intermediate density exohytic lesion in the left kidney with the largest measuring 2 cm. These are intermediate and a renal ultrasound is recommended to evaluate for solid component. Of note there are several low-density cysts in both kidneys. Additional Plan OK to discharge from cardiac standpoint See discharge instructions for follow-up Plan discussed with Dr Lozano [id number] 04/28/2020 Subjective Date/time seen: 04/28/20 11:08 Interval history: Follow-up visit for: atrial flutter with controlled ventricular response, DVT, hypertension Date of service: 04/28/2020 Subjective: Feeling much better today. Denied shortness of breath, chest discomfort, lightheadedness or palpitations. Right lower leg is less swollen today. Review of Systems Constitutional: Constitutional: Denies body ache(s), Denies chills, Denies excessive sweating, Denies fatigue, Denies fever(s), Denies headache(s) and Reports weight loss (30 lb since he had pneumonia in December 2019) Eyes: Eyes: Denies blind spots, Denies blurry vision and Denies diplopia ENT: Reports Normal hearing present, Denies change in voice, Denies dysphagia, Denies dizziness, Denies headache(s), Denies epistaxis, Denies nasal congestion, Denies neck pain, Denies post nasal drip, Denies tinnitus and Denies throat swellin
[2020-04-28 11:28] VITALS: BP 152/92
[2020-04-28] MEDS: hydroCHLOROthiazide 25 MG TABLET PO (11:28)
--- NOTE | 2020-04-28 12:17 | P.DS_ITS ---
DS: Admitting Diagnosis Admitting Diagnosis Admitting Diagnosis: Unspecified atrial flutter DS: Discharge Diagnosis Discharge Diagnosis (1) Atrial flutter: Qualifiers: Atrial flutter type: unspecified Qualified Code(s): I48.92 - Unspecified atrial flutter Code(s): I48.92 - Unspecified atrial flutter Status: Acute Assessment and Plan: May be secondary to uncontrolled HTN verses DVT/PE. * It is unknown how long patient has been in atrial flutter. * Cardiology evaluated the patient and started him on metoprolol succinate 50 mg once a day which has been controlling his rate very well * Cardiology switched him to Eliquis for treatment of DVT/PE and Atrial flutter * TSH was normal. * Echocardiogram showed There is mild concentric increased left ventricular wall thickness. Left ventricular systolic function is normal, estimated at 55-60%. There is mild mitral valve regurgitation. The aortic valve is normal. Mild bi- atrial dilation. * The patient is feeling well at this time. * Cardiology feels comfortable the patient being discharged at this time to continue metoprolol, Eliquis, and follow-up in 4-6 weeks for a possible cardioversion (2) DVT (deep venous thrombosis): Qualifiers: Affected thrombotic vein of extremity: popliteal Chronicity: unspecified DVT location: lower extremity Laterality: bilateral Qualified Code(s): I82.433 - Acute embolism and thrombosis of popliteal vein, bilateral Code(s): I82.409 - Acute embolism and thrombosis of unspecified deep veins of unspecified lower extremity Status: Acute Assessment and Plan: Patient found to a DVT to his left popliteal and right distal calf which is nonocclusive. he was started on IV heparin. * Cardiology started the patient on Eliquis. * Patient had a V/Q scan which showed he has intermittent probability of having a PE, he is already being treated for a DVT and we will continue treatment. * instructed the patient is very important to take his Eliquis as prescribed twice a day. patient understands and agrees the plan all questions answered. * He is stable for discharge and follow-up with cardiology on June 02 (3) Uncontrolled hypertension: Code(s): I10 - Essential (primary) hypertension Status: Acute Assessment and Plan: Secondary to medical nonadherence. 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 (4) Acute dyspnea: Code(s): R06.00 - Dyspnea, unspecified Status: Acute Assessment and Plan: May be secondary to atrial flutter, mild pulmonary congestion from aflutter vs. pulmonary embolism. * he was given a dose of IV Lasix on arrival * he appears euvolemic at this time * V/Q scan shows intermittent probability of PE and we are ready treating for DVT with IV heparin * atrial flutter is now rate controlled and further evaluated by cardiology * he states he is not having any more shortness of breath but states this was only whenever he would carry groceries up a flight of stairs. * Patient will be discharged on Eliquis and has not had any more shortness of breath at this time. (5) Chronic
--- NOTE | 2020-04-28 12:17 | PM.DS ---
DS: Admitting Diagnosis Admitting Diagnosis Admitting Diagnosis: Unspecified atrial flutter DS: Discharge Diagnosis Discharge Diagnosis (1) Atrial flutter: Qualifiers: Atrial flutter type: unspecified Qualified Code(s): I48.92 - Unspecified atrial flutter Code(s): I48.92 - Unspecified atrial flutter Status: Acute Assessment and Plan: May be secondary to uncontrolled HTN verses DVT/PE. It is unknown how long patient has been in atrial flutter. Cardiology evaluated the patient and started him on metoprolol succinate 50 mg once a day which has been controlling his rate very well Cardiology switched him to Eliquis for treatment of DVT/PE and Atrial flutter TSH was normal. Echocardiogram showed There is mild concentric increased left ventricular wall thickness. Left ventricular systolic function is normal, estimated at 55-60%. There is mild mitral valve regurgitation. The aortic valve is normal. Mild bi-atrial dilation. The patient is feeling well at this time. Cardiology feels comfortable the patient being discharged at this time to continue metoprolol, Eliquis, and follow-up in 4-6 weeks for a possible cardioversion (2) DVT (deep venous thrombosis): Qualifiers: Affected thrombotic vein of extremity: popliteal Chronicity: unspecified DVT location: lower extremity Laterality: bilateral Qualified Code(s): I82.433 - Acute embolism and thrombosis of popliteal vein, bilateral Code(s): I82.409 - Acute embolism and thrombosis of unspecified deep veins of unspecified lower extremity Status: Acute Assessment and Plan: Patient found to a DVT to his left popliteal and right distal calf which is nonocclusive. he was started on IV heparin. Cardiology started the patient on Eliquis. Patient had a V/Q scan which showed he has intermittent probability of having a PE, he is already being treated for a DVT and we will continue treatment. instructed the patient is very important to take his Eliquis as prescribed twice a day. patient understands and agrees the plan all questions answered. He is stable for discharge and follow-up with cardiology on June 02 (3) Uncontrolled hypertension: Code(s): I10 - Essential (primary) hypertension Status: Acute Assessment and Plan: Secondary to medical nonadherence. Cardiology is working on medication adjustments continue metoprolol succinate, Norvasc, hydrochlorothiazide instructed him to check his blood pressure twice a day and write it down so he can follow-up with primary care provider and rehab rn for further adjustments if necessary. (4) Acute dyspnea: Code(s): R06.00 - Dyspnea, unspecified Status: Acute Assessment and Plan: May be secondary to atrial flutter, mild pulmonary congestion from aflutter vs. pulmonary embolism. he was given a dose of IV Lasix on arrival he appears euvolemic at this time V/Q scan shows intermittent probability of PE and we are ready treating for DVT with IV heparin atrial flutter is now rate controlled and further evaluated by cardiology he states he is not having any more shortness of breath but states this was only whenever he would carry groceries up a flight of stairs. Patient will be discharged on Eliquis and has not had any more shortness of breath at this time. (5) Chronic kidney disease, stage IV (severe): Code(s): N18.4 - Chronic kidney disease, stage 4 (severe) Status: Chronic Assessment and Plan: Cr appears to be close to baseline. Creatinine is 3.1 this morning. Stable from baseline. (6) Obstructive sleep apnea treated with BiPAP: Code(s): G47.3
== END 2020-04-28 13:49 | disposition home or self-care (01) | DRG 309 ==
LOC: ANHED 14:02 → ANHIMU 14:39 → ANH2MED 04-27 06:31
PROVIDERS: Family Medicine; Nurse Practitioner Adult Health; Physician Assistant; Admitting Provider Internal Medicine; Emergency Provider General Practice; PCP Internal Medicine; Visit Provider Internal Medicine
DX: I48.92 Unspecified atrial flutter (principal); I82.433 Acute embolism and thrombosis of popliteal vein, bilateral; N18.4 Chronic kidney disease, stage 4 (severe); I13.10 Hypertensive heart and chronic kidney disease without heart failure, with stage 1 through stage 4 chronic kidney disease, or unspecified chronic kidney disease; I71.2 Thoracic aortic aneurysm, without rupture; R06.00 Dyspnea, unspecified; G47.33 Obstructive sleep apnea (adult) (pediatric); F41.8 Other specified anxiety disorders; Z79.82 Long term (current) use of aspirin; Z79.899 Other long term (current) drug therapy; Z91.19 Patient's noncompliance with other medical treatment and regimen
CPT/HCPCS: 36415; 36600; 71046; 78580; 80048; 80076; 82375; 82805; 83050; 83605; 83880; 84443; 84484; 85025; 85027; 85610; 85730; 93005; 93306; 93970; 96366; 96374; 96375; 99285; A9270; A9540; G0378; J0360; J1644; J1940

== ENCOUNTER 2020-06-08 00:51 | Outpatient (CLI) | payer MEDICARE, SELFPAY ==
[2020-06-08 18:28] LABS: SARS-CoV-2 RNA PCR Negative
== END 2020-06-08 00:52 | disposition home or self-care (01) ==
LOC: ANHCOVIDDT 00:52
PROVIDERS: PCP Internal Medicine; Visit Provider Specialist
DX: Z01.812 Encounter for preprocedural laboratory examination (principal); Z11.59 Encounter for screening for other viral diseases
CPT/HCPCS: 87635; C9803; U0003

== ENCOUNTER 2020-06-10 05:23 | Day surgery (SDC) | payer MEDICARE, SELFPAY ==
[2020-06-09 16:53] VITALS: BMI 42.4
[2020-06-10] VITALS (10 sets, daily range): BP systolic 96–121; BP diastolic 77–99; PULSE 70–84; RESP 12–20; TEMP 36.2–36.8; O2SAT 95–100; BMI 42.5
--- NOTE | 2020-06-10 06:12 | ECG_ITS ---
Measurements Intervals [place] Rate: 85 P: AR: 0 QRS: 45 QRSD: 105 T: 83 QT: 359 QTc: 427 Interpretive Statements ATRIAL FLUTTER/TACHYCARDIA DELAYED PRECORDIAL R/S TRANSITION BASELINE ARTIFACT- V3-V6 ABNORMAL ECG Electronically Signed On 06-10-2020 10:46:35 CDT by Rajiv Castro D.O.
--- NOTE | 2020-06-10 09:27 | WPDANESEPPF ---
Anes - Initial Pre Proc Eval Procedure: Operation Date: 06/10/20 10:30 Proposed Procedures p Electrical Cardioversion - Garfield Duran MD Date/Time: 06/10/20 09:27 Surgeon: Garfield Duran MD Pre Op Diagnosis: Atrial Flutter Patient Data Age: 65 Gender: M Height: 6 ft 2 in Weight: 150 kg Allergies Allergy/AdvReac Type Severity Reaction Status Date / Time iohexol Allergy Itching Verified 05/16/20 09:53 [From contrast - CT, X-RAY] Home Medications Medication Instructions Recorded Confirmed Type cholecalciferol (vitamin D3) 25 mcg PO DAILY 01/07/20 06/10/20 History hydrochlorothiazide 25 mg tablet 25 mg PO DAILY #90 tablet 04/25/20 06/10/20 Rx amlodipine 10 mg PO DAILY #30 tablet 04/28/20 06/10/20 Rx apixaban [Eliquis] 5 mg PO Q12HR #74 tablet 04/28/20 06/10/20 Rx metoprolol succinate 50 mg PO QAM #30 tablet 04/28/20 06/10/20 Rx Patient hx anesthesia problems: none Family hx anesthesia problems: none PMFSH Social History Social History Social History: Surrogate decision maker: Lizeth Rodriguez, sister. Code status: Full code. Smoking status: Never smoker Second hand tobacco smoke exposure: Yes Alcohol intake: never Drinks per week: 4 Substance use: never Substance use type: does not use Living arrangements: alone Additional living arrangements comments: Lives with older sister in [place]. 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 Gender identity (if verbalized by the patient): Male Spiritual care concerns: No Agree to blood products: No Anes - Eval Final PreProcedure Day of Procedure 06/10/20 09:27 Patient weight: morbidly obese Heart: irregular rhythm Lungs: clear to auscultation Airway: Mallampati scale class II Neurological: alert and oriented Last oral intake: >/= 8 hours ASA classification: IV Emergent: no Anesthetic plan: proceed Anesthesia type and monitoring: general GIVS and standard monitoring Informed Consent: The patient's anesthetic plan and its attendant risks and benefits were discussed with the patient/family/POA. Questions were solicited and answers provided to the satisfaction of the patient/family/POA.
[2020-06-10 10:39] LABS: Anion Gap 7 mmol/L (8-16); Blood Urea Nitrogen 42 mg/dL (9-20); Calcium 8.8 mg/dL (8.4-10.2); Carbon Dioxide 25 mmol/L (22-30); Chloride 104 mmol/L (98-107); Estimated CRCL calculation 33 ml/min; Estimated Glomerular Filt Rate 25; Glucose 98 mg/dL (75-110); Magnesium 1.8 mg/dL (1.6-2.3); Potassium 4.6 mmol/L (3.4-5.0); Sodium 136 mmol/L (137-145)
--- NOTE | 2020-06-10 11:17 | ECG_ITS ---
Measurements Intervals [place] Rate: 80 P: 28 CO: 240 QRS: 16 QRSD: 108 T: 86 QT: 371 QTc: 428 Interpretive Statements SINUS RHYTHM WITH SINUS ARRHYTHMIA WITH FIRST DEGREE AV BLOCK DELAYED PRECORDIAL R/S TRANSITION NONSPECIFIC T-WAVE ABNORMALITY- HIGH LATERAL LEADS ABNORMAL ECG Electronically Signed On 06-10-2020 11:38:14 CDT by Rajiv Castro D.O.
--- NOTE | 2020-06-10 11:32 | SUR.PHASEII ---
BEGIN PHASE II RECOVERY. RETURNS FROM CARDIOVERSION DONE IN PACU W/ ANESTHESIA ASSIST W/ DR. DURON TO ICE GUARD SKATING RINK 4. AWAKE AND ALERTX4 ON ARRIVAL, DENIES CP OR SOB. REPORTS CENTRAL CHEST SKIN MILDLY SORE. SKIN IS INTACT AND NOT REDDENED. MONITOR SR W/ 1ST DEG AV BLOCK. RESTING IN BED AT THIS TIME. POST EKG HAS BEEN COMPLETED. VSS. BROTHER AT BEDSIDE. WILL MONITOR.
--- NOTE | 2020-06-10 11:52 | P.PCNCC_ITS ---
Cardiac Cath Procedure Note Date of procedure:: 06/10/20 Performing physician:: Garfield Duran MD Indication:: atrial flutter Brief clinical history:: this is a 65-year-old man with hypertension a history of chronic descending aortic dissection and recent recognition of atrial flutter when he was hospitalized with some shortness of breath. He is otherwise not greatly symptomatic with his arrhythmia. The patient has been anticoagulated with apixaban. An attempt has been recommended to restore sinus rhythm electrically. Procedure Procedure performed:: DC cardioversion Sedation/Medication given:: sedation per Anesthesia Estimated blood loss:: no blood loss Procedure note:: the patient was brought to the postanesthesia care unit/ recovery room in the OR. The patient was then sedated by the anesthesia service using propofol IV push. Please see their note for those details. Prior to sedation he had the defibrillator patches placed in the AP position and defibrillator synchronized 200 joules. Following sedation the patient was counter shocked 1 time at 200 joules restoring normal sinus rhythm Findings:: as above Conclusion:: successful uncomplicated DC cardioversion of atrial flutter to sinus rhythm using 200 joules x1 shock Garfield Duran MD [facility]
--- NOTE | 2020-06-10 12:27 | SUR.PHASEII ---
BEDREST POST ANESTHESIA COMPLETE. REMAINS FULLY AWAKE AND ALERT X 4. DENIES CP OR SOB. VSS. REPORTS STILL WITH MILD SORENESS TO CENTRAL CHEST SKIN POST CARDIOVERSION. SKIN IS NONREDDENED. HAS BEEN TAKING ICE AND SIPS OF WATER WITHOUT DIFFICULTY. DANGLED BEDSIDE, UP TO BATHROOM. STEADY. VOICES NO C/O. DRESSING FOR FOR DISCHARGE HOME. MONITOR REMAINS SR W/ 1ST DEG AVB.
--- NOTE | 2020-06-10 12:45 | SUR.PHASEII ---
DISCHARGE INSTRUCTIONS HAVE BEEN REVIEWED W/ PT. BY LILLIAN He RN. ALL QUESTIONS ANSWERED. VOICED UNDERSTANDING OF ALL. IV SITE HAS BEEN DISCONTINUED AND SITE DRESSED. DISCHARGED HOME, OUT VIA WC TO BROTHER'S WAITING TRUCK WITH ALL PERSONAL BELONGINGS AND DISCHARGE PACKET. FULLY AWAKE AND ALERT. VOICES NO C/O.
== END 2020-06-10 12:45 | disposition home or self-care (01) ==
PROVIDERS: PCP Internal Medicine; Visit Provider Specialist
PROC: 5A2204Z Restoration of Cardiac Rhythm, Single (ICD-10-PCS; principal; 2020-06-10 10:30)
DX: I48.92 Unspecified atrial flutter (principal); Z79.01 Long term (current) use of anticoagulants; E66.01 Morbid (severe) obesity due to excess calories; Z68.41 Body mass index [BMI] 40.0-44.9, adult
CPT/HCPCS: 36415; 80048; 83735; 92960; 93005; J2704; J7040

== ENCOUNTER 2020-11-11 14:21 | Emergency (ER) | payer MEDICARE, MEDICAID, SELFPAY ==
--- NOTE | ~2020-11-11 | XR_ITS ---
EXAMINATION: XR knee LT min 4V DATE: 11/11/2020 15:15 INDICATION: Pain at the posterior left knee TECHNIQUE: Anteroposterior, 2 oblique and crosstable lateral views of the left knee were obtained COMPARISON: None. FINDINGS: Alignment is normal. No fracture. Joint spaces appear normal on nonweightbearing imaging. There are tiny marginal ossified swelling the medial and lateral compartments. More prominent osteophytes at th e patellofemoral compartment with irregular cortical contour along the patellar apical ridge suggesti ng high-grade chondromalacia. Large left knee joint effusion. Small enthesophytes along the anterior patella. IMPRESSION: 1. Large left knee joint effusion. No acute osseous abnormality. 2. Tricompartmental osteoarthritis with cortical irregularity along the patellar apical ridge suggest ing high-grade patellar chondromalacia. Reviewed, dictated and finalized at location A. RETE MIXER OPERATOR IMPRESSION: 1. Large left knee joint effusion. No acute osseous abnormality. 2. Tricompartmental osteoarthritis with cortical irregularity along the patella r apical ridge suggesting high-grade patellar chondromalacia.
--- NOTE | ~2020-11-11 | US_ITS ---
EXAMINATION: US venous doppler [facility] DATE: 11/11/2020 16:11 INDICATION: Left lower leg pain and swelling. Chronic left popliteal deep venous thrombosis on antico agulation. TECHNIQUE: Grayscale ultrasound images without and with compression and Doppler ultrasound images of the left lower extremity veins were obtained. COMPARISON: None. FINDINGS: Persistent eccentric nonocclusive thrombus with hyperechoic margins along the left popliteal vein. Th e visualized portions of left common femoral vein, profunda (deep) femoral vein, femoral vein, arabic professor ior tibial veins, gastrocnemius vein and greater saphenous vein outflow are patent. The peroneal vein s were unable to be visualized. IMPRESSION: 1. No interval change in chronic nonocclusive deep venous thrombosis at the periphery of the left po pliteal vein. No new deep venous thrombosis in the left lower limb. Reviewed, dictated and finalized at location A. WORKER DAIRY IMPRESSION: 1. No interval change in chronic nonocclusive deep venous thrombosis at the pe riphery of the left popliteal vein. No new deep venous thrombosis in the left l ower limb.
[2020-11-11 14:29] VITALS: BP 155/95; PULSE 93; RESP 18; TEMP 37; O2SAT 97
[2020-11-11] MEDS: HYDROcodone/acetaminophen (*CRX) 5-325 MG TABLET 1 TAB PO (15:41)
--- NOTE | 2020-11-11 15:44 | ED.EXTPRO ---
HPI - Extremity Problem General Chief complaint: Extremity Problem,Nontraumatic <Gwendolyn Moore PA-C - Last Filed: 11/11/20 20:32> Stated complaint: pain behind lt knee, hx dvt <KENDRICK Rivera Last Filed: 11/11/20 20:32> Time Seen by Provider: 11/11/20 15:18 <KENDRICK Rivera Last Filed: 11/11/20 20:32> Source: patient <KENDRICK Rivera Last Filed: 11/11/20 20:32> Mode of arrival: wheelchair <KENDRICK Rivera Last Filed: 11/11/20 20:32> Limitations: no limitations <KENDRICK Rivera Last Filed: 11/11/20 20:32> History of Present Illness HPI Narrative: This is a 65 year old male that presents to the ER for left posterior knee pain x 3 days. No certain injury or trauma. Pain is worse with weight bearing and relieved with rest. Reports swelling of the knee as well. Reports history of DVT and that he was concerned that he had another one. Reports decreased ROM due to pain. Denies fever, erythema, or numbness. <KENDRICK Rivera Last Filed: 11/11/20 20:32> Related Data Home medications: Home Medications Medication Instructions Recorded Confirmed cholecalciferol (vitamin D3) 25 mcg PO DAILY 01/07/20 08/16/20 <KENDRICK Rivera Last Filed: 11/11/20 20:32> Allergies/Adverse reactions: Allergies Allergy/AdvReac Type Severity Reaction Status Date / Time iohexol Allergy Itching Verified 11/11/20 14:33 [From contrast - CT, X-RAY] <KENDRICK Rivera Last Filed: 11/11/20 20:32> Review of Systems Review of Systems: Narrative: CONSTITUTIONAL: Denies fever SKIN: Denies rash MUSCULOSKELETAL: Reports joint pain, and myalgia. NEUROLOGIC: Denies numbness <KENDRICK Rivera Last Filed: 11/11/20 20:32> All systems reviewed & are unremarkable except as noted in HPI and below <Gwendolyn Moore PA-C - Last Filed: 11/11/20 20:32> [facility] Past Medical History Medical History: Medical History (Updated 11/11/20 @ 20:28 by Gwendolyn Moore PA-C) Abdominal aortic aneurysm dissection Chronic kidney disease, stage 4, severely decreased GFR Patient of Dr. Dixon. Baseline creatinine unknown to the patient. Depression with anxiety Erectile dysfunction Essential hypertension Obstructive sleep apnea treated with BiPAP Paralysis of both lower limbs Temporary Posttraumatic stress disorder Spinal stenosis of lumbar region at multiple levels Strain of left knee Thoracic aortic dissection 2004 <Gwendolyn Moore PA-C - Last Filed: 11/11/20 20:32> Surgical History Surgical History: Surgical History H/O spinal fusion L4 to L5 in 2005 History of inguinal herniorrhaphy Right 2005 History of thoracic aortic aneurysm repair In 2004 endoluminal stent in the descending thoracic aorta <Gwendolyn Moore PA-C - Last Filed: 11/11/20 20:32> Family History Family History: Family History Mother Family history of cardiovascular disease, Onset Age: 89 Diabetes mellitus, Onset Age: 89 Hx of CABG Sibling Diabetes mellitus Father Diabetes mellitus <Gwendolyn Moore PA-C - Last Filed: 11/11/20 20:32> Social History Social History: Social History Social History: Surrogate decision maker: Lizeth Rodriguez, sister. Code status: Full code. Smoking status: Never smoker Second hand tobacco smoke exposure: Yes Alcohol intake: never Drinks per week: 4 Substance use: never Substance use type: does not use Additional living arrangements comments: Lives with older sister in [place]. 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 Gender identity (if verbalized by the patient): Male Spiritual care concerns: No Agree to blood products: No <Gwendolyn Moore PA-C - Last Filed: 11/11/20 20:32> Exam
[2020-11-11 16:04] LABS: Basophils Percent Auto 0.3 % (0.2-1.2); Eosinophils Percent Auto 0.2 % (0-4.4); Hematocrit 47.3 % (42.0-52.0); Hemoglobin 14.5 g/dL (14.0-18.0); Immature Granulocyte Absolute 0.01 K/mm3 (0.00-0.031); Immature Granulocyte Percent A 0.2 % (0-0.5); Lymphocytes Absolute Auto 0.73 K/mm3 (0.9-3.2); Lymphocytes Percent Auto 11.4 % (18.3-44.2); Mean Corpuscular HGB Conc 30.7 g/dl (32-36); Mean Corpuscular Hemoglobin 27.8 pg (26-34); Mean Corpuscular Volume 90.8 fl (80-100); Mean Platelet Volume 12.1 fl (7.4-10.4); Monocytes Absolute Auto 0.7 K/mm3 (0.1-0.6); Monocytes Percent Auto 11.5 % (2.6-8.5); Neutrophils Absolute Auto 4.9 K/mm3 (1.3-6.7); Neutrophils Percent Auto 76.4 % (45.5-73.1); Platelet Count Result 136 k/mm3 (150-375); Red Blood Count 5.21 M/mm3 (4.6-6.20); Red Cell Distribution Width 13.6 % (11.5-14.5); White Blood Count 6.4 K/mm3 (4.5-10.0)
[2020-11-11 16:14] LABS: INR 1.3; Prothrombin Time 16.4 Seconds (11.1-14.7)
[2020-11-11 16:15] LABS: Partial Thromboplastin Time 36.5 SECONDS (22.3-36.8)
[2020-11-11 16:28] LABS: Anion Gap 12 mmol/L (8-16); Blood Urea Nitrogen 37 mg/dL (9-20); Calcium 9.2 mg/dL (8.4-10.2); Carbon Dioxide 25 mmol/L (22-30); Chloride 99 mmol/L (98-107); Estimated Glomerular Filt Rate 20; Glucose 103 mg/dL (75-110); Potassium 4.8 mmol/L (3.4-5.0); Sodium 136 mmol/L (137-145); Uric Acid 9.8 mg/dL (3.5-8.5)
[2020-11-11 16:35] LABS: Erythrocyte Sedimentation Rate 7 mm/hr (0-20)
[2020-11-11 17:12] LABS: CRP 6.9 mg/dL (<1.0)
[2020-11-11 19:24] LABS: Color Synovial Fluid Yellow (Colorless); Source Synovial Fluid Synovial fluid
[2020-11-11 19:25] LABS: Appearance Synovial Fluid Hazy (Clear); Lymphocytes Synovial Fluid 67 %; Monocytes Synovial Fluid 8 %; Neutrophils Synovial Fluid 25 % (0-25); Nucleated Cell Synovial Fluid 189 /uL (0-200); RBC Synovial Fluid 1731 /uL (0-0)
[2020-11-11 19:27] LABS: Crystals Synovial Fluid None Seen (None Seen)
[2020-11-11 20:40] VITALS: BP 117/94; PULSE 96; RESP 18; TEMP 36.9; O2SAT 96
[2020-11-11] MEDS: traMADol HCL (*CRX) 50 MG TABLET PO (20:43)
[2020-11-13 19:44] LABS: Glucose Synovial Fluid 47 mg/dL
== END 2020-11-11 20:45 | disposition home or self-care (01) ==
PROVIDERS: Physician Assistant; Emergency Provider Emergency Medicine; PCP Internal Medicine
DX: M25.462 Effusion, left knee (principal); I12.9 Hypertensive chronic kidney disease with stage 1 through stage 4 chronic kidney disease, or unspecified chronic kidney disease; N18.4 Chronic kidney disease, stage 4 (severe); G47.33 Obstructive sleep apnea (adult) (pediatric); Z98.1 Arthrodesis status; Z86.718 Personal history of other venous thrombosis and embolism; M17.12 Unilateral primary osteoarthritis, left knee
CPT/HCPCS: 20610; 36415; 73564; 80048; 82945; 84157; 84550; 85025; 85610; 85652; 85730; 86140; 87070; 87075; 87205; 89051; 89060; 93971; 99284; A9270

== ENCOUNTER 2020-11-23 09:28 | Outpatient (CLI) | payer MEDICARE, MEDICAID, SELFPAY | END 2020-11-23 09:29 | disposition home or self-care (01) | LOC: ANHCOVIDVC 09:28 | PROVIDERS: PCP Internal Medicine | DX: Z23 Encounter for immunization (principal) | CPT/HCPCS: 0001A; 91300 ==

== ENCOUNTER 2020-11-23 14:51 | Outpatient (CLI) | payer MEDICARE, MEDICAID, SELFPAY ==
--- NOTE | ~2020-11-23 | MR_ITS ---
EXAMINATION: MR knee LT wo con DATE: 11/23/2020 15:55 INDICATION: Left knee joint effusion. TECHNIQUE: Magnetic resonance imaging (MRI) of the left knee was performed without intravenous contra st. Sequences included coronal PD-weighted FSE, coronal PD-weighted FS FSE, sagittal T2-weighted FSE , sagittal PD-weighted FS FSE and axial PD weighted fat saturated FSE. COMPARISON: Left knee radiographs dated 11/11/2020 FINDINGS: Medial compartment: Small partial-thickness radial tear at the lateral side of the posterior horn of the medial meniscus. There is mild medial extrusion of the meniscal body. Longitudinal horizontal oriented linear increas ed signal at the medial meniscal body which approaches but does not unambiguously contact the inferio r articular surface which remains equivocal for an additional tear plane. Partial-thickness cartilage loss along the weightbearing medial femoral condyle most prominent at the anterior weightbearing una face where there is mild chondral surface regularity. Additional partial thickness cartilage loss wit h smooth chondral surface along the margins of the medial tibial plateau. Small marginal osteophytes are present. Lateral compartment: Lateral meniscus is normal. Partial-thickness cartilage loss with minimal chondral surface irregulari ty along the lateral aspect of the weightbearing lateral femoral condyle. Tiny marginal osteophytes a re present. Patellofemoral compartment: Extensive full/near full-thickness cartilage loss along the patella with cortical irregularity and villarreal barticular cystic change and edema along significant portions of the patella. Extensive partial thick ness cartilage loss involving greater than 50% the cartilage thickness along the lateral two thirds o f the lateral trochlea with additional mild subarticular edema along the lateral rim. Cartilage thick ness is relatively preserved at the medial trochlea and trochlear groove with small regions of deep c hondral ulceration with cortical irregularity at the central and superomedial aspect of the medial tr ochlea. Small marginal osteophytes along the patella. Ligaments and tendons: Anterior and posterior cruciate ligaments are normal. The medial collateral ligament and fibular rogelio ateral ligament complex are normal. Mild distal quadriceps tendinopathy. A couple small bands of cristela c angle artifact extending across the otherwise normal distal patellar tendon. The visualized medial and lateral hamstring tendons as well as the iliotibial band are normal. Fluid: Large left knee joint effusion. No loose osteochondral bodies identified. Osseous/other: No fracture or pathologic marrow replacing process. Bone island at the medial femoral condyle. There is swelling and prominent nonspecific increased fluid signal throughout the popliteus muscle which co uld be related to muscle strain or nonspecific myositis. The level of the knee popliteal vein a small likely chronically thrombosed with more proximal extension of low signal intensity likely chronic in traluminal thrombus surrounded by higher signal intensity blood with flow-void in the more proximal b [id number] popliteal vein. IMPRESSION: 1. Medial meniscal tear. 2. Tricompartmental osteoarthritis, severe with extensive high-grade chondral malacia in the patellof emoral compartment, mild to moderate severity with moderate grade chondromalacia in the medial compar tment and mild with moderate grade chondromalacia in the lateral compartment. 3. Large left knee joint effusion. 4. Swelling in diffuse increased fluid signal throughout the popliteus muscle belly which could be re lated to low-grade muscle strain or nonspecific myositis which has a wide differential which includes infectious, inflammatory, rheumatologic/autoimmune and ischemic etiologies. 5. Likely chronic thrombosis of the left popliteal vein.
== END 2020-11-23 14:52 | disposition home or self-care (01) ==
PROVIDERS: PCP Internal Medicine; Visit Provider Clinical Nurse Specialist
DX: M25.462 Effusion, left knee (principal); S83.242A Other tear of medial meniscus, current injury, left knee, initial encounter; M94.262 Chondromalacia, left knee; M79.89 Other specified soft tissue disorders
CPT/HCPCS: 0001A; 73721; 91300

== ENCOUNTER 2020-12-14 09:27 | Outpatient (CLI) | payer MEDICARE, MEDICAID, SELFPAY | END 2020-12-14 09:28 | disposition home or self-care (01) | LOC: ANHCOVIDVC 09:28 | PROVIDERS: PCP Internal Medicine | DX: Z23 Encounter for immunization (principal) | CPT/HCPCS: 0002A; 91300 ==

== ENCOUNTER 2021-02-17 15:12 | Outpatient (CLI) | payer MEDICARE, MEDICAID, SELFPAY ==
[2021-02-17 16:16] LABS: Prostate Specific Antigen 0.9 ng/mL (< OR = 4.0)
== END 2021-02-17 15:13 | disposition home or self-care (01) ==
LOC: ANHLAB 15:16
PROVIDERS: PCP Internal Medicine; Visit Provider Internal Medicine
DX: Z12.5 Encounter for screening for malignant neoplasm of prostate (principal)
CPT/HCPCS: 36415; 84153; G0103

== ENCOUNTER 2021-03-27 13:00 | Emergency (ER) | payer MEDICARE, MEDICAID, SELFPAY ==
[2021-03-27] VITALS (9 sets, daily range): BP systolic 128–186; BP diastolic 96–132; PULSE 57–95; RESP 10–22; TEMP 36.3–36.9; O2SAT 90–97
--- NOTE | ~2021-03-27 | CT_ITS ---
EXAMINATION: CT abdomen pelvis wo con EXAM DATE: 03/27/2021 16:02 INDICATION: Epigastric abdominal pain. TECHNIQUE: Spiral CT of the abdomen and pelvis was performed without contrast. Axial, coronal and s agittal images of the abdomen and pelvis were reviewed. The dose-length product (DLP) for this exami nation was 1612.64 mGy-cm. The exposure was tailored according to patient size (auto mA exposure con trol), and iterative reconstruction (ASIR) was used as additional dose reduction technique. Compariso n is made to prior examination from 06/07/2018. FINDINGS: There is a descending thoracic aortic stent. Inferior to this stent there is bilobulated an eurysmal dilation of the lower thoracic aorta up to 7.0 cm (previously 5.5 cm 2018). There is small a mount of hyperdense material within the retroperitoneum, and adjacent to the aorta and lower thoracic region suspicious for acute blood, rupture of the aneurysm. At the aortic hiatus the aneurysm measur es 4.3 cm. I discussed these findings with Elina Abdalla MD at 03/27/2021 16:08 CDT. Small left pleural effusion. Bibasilar atelectasis, segmental on the left and subsegmental on the rig ht. Bilateral renal lesions of varying densities consistent with cysts and hemorrhagic cysts. Cannot exclude solid mass in the setting. No hydronephrosis. Spleen, adrenal glands, pancreas, gallbladder a nd liver are unremarkable. Normal appendix. Small umbilical hernia containing nonobstructed loop of i leum. There is 4 cm duodenal diverticulum along the 4th portion of the duodenum. There is mild scatte red colonic diverticulosis. There is no adjacent inflammatory change to suggest diverticulitis. No small bowel dilation. Prostate and bladder are unremarkable. Small to moderate right, small left ingu inal fat-containing hernias. IMPRESSION: 1. Lower thoracic aortic aneurysm with small amount of periaortic, upper abdominal retroperitoneal h emorrhage, evidence of rupture. Emergent vascular consultation indicated. 2. Chronic findings above. Reviewed, dictated and finalized at location A. IMPRESSION: 1. Lower thoracic aortic aneurysm with small amount of periaortic, upper abdom inal retroperitoneal hemorrhage, evidence of rupture. Emergent vascular consult ation indicated. 2. Chronic findings above.
--- NOTE | 2021-03-27 13:40 | ED.GENADULT ---
HPI - General Adult General Chief complaint: Abdominal Pain Stated complaint: CP Time Seen by Provider: 03/27/21 13:16 Source: patient History of Present Illness HPI narrative: Patient is a 65 y/o male complaining of upper abdominal pain starting at approximately 10 AM this morning (~ 5 hours ago). He describes his pain as pressure and rates it as 7/10 initially, but 6/10 currently. There is no pain radiation. There is no alleviating or exacerbating factor. He had some vomiting, but no diarrhea. Related Data Home Medications Medication Instructions Recorded Confirmed cholecalciferol (vitamin D3) 25 mcg PO DAILY 01/07/20 02/23/21 Allergies Allergy/AdvReac Type Severity Reaction Status Date / Time iohexol Allergy Itching Verified 03/27/21 13:57 [From contrast - CT, X-RAY] Review of Systems Constitutional: Constitutional: Denies chills, Denies fever(s), Denies headache(s) and Denies weakness Eyes: Eyes: Denies blurry vision ENT: Denies headache(s) and Denies neck pain Cardiovascular: Cardiovascular: Denies chest pain and Denies dyspnea Respiratory: Respiratory: Denies cough and Denies dyspnea Gastrointestinal: Gastrointestinal: Reports abdominal pain, Denies diarrhea, Reports nausea and Reports vomiting Genitourinary: Genitourinary: Denies hematuria and Denies dysuria Musculoskeletal: Musculoskeletal: Denies back pain and Denies neck pain Neurologic: Denies headache(s) and Denies weakness PMFSH Past Medical History Medical History Abdominal aortic aneurysm dissection Chronic kidney disease, stage 4, severely decreased GFR Patient of Dr. Dixon. Baseline creatinine unknown to the patient. Depression with anxiety Erectile dysfunction Essential hypertension Left knee pain Obstructive sleep apnea treated with BiPAP Paralysis of both lower limbs Temporary Posttraumatic stress disorder Spinal stenosis of lumbar region at multiple levels Strain of left knee Thoracic aortic dissection 2004 Surgical History Surgical History H/O spinal fusion L4 to L5 in 2006 History of inguinal herniorrhaphy Right 2006 History of thoracic aortic aneurysm repair In 2004 endoluminal stent in the descending thoracic aorta Family History Family History Mother Family history of cardiovascular disease, Onset Age: 89 Diabetes mellitus, Onset Age: 89 Hx of CABG Sibling Diabetes mellitus Father Diabetes mellitus Social History Social History Social History: Surrogate decision maker: Lizeth Rodriguez, sister. Code status: Full code. Second hand tobacco smoke exposure: Yes Alcohol intake: never Drinks per week: 4 Substance use: never Substance use type: does not use Additional living arrangements comments: Lives with older sister in [place]. 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 Gender identity (if verbalized by the patient): Male Spiritual care concerns: No Agree to blood products: No Exam Const: General: no acute distress and well developed Orientation/consciousness: oriented to person, oriented to place, oriented to time and patient oriented x3 HENMT: Head: normocephalic Ears: external ears normal General nose exam: Normal external nose present Eyes: General: appearance normal, both eyes and all related structures Conjunctivae: conjunctivae normal Neck: Neck: normal visual inspection and full ROM Chest: Chest palpation & inspection: normal inspection of the chest and no tenderness Resp: Effort & Inspection: normal respiratory effort Auscultation: clear to auscultation bilaterally Cardio: Rate: regular rate Rhythm: regular rhythm GI: GI Palp: No abdominal tenderness and Yes Soft to palpation Skin: General skin exa
[2021-03-27 15:49] LABS: Hematocrit 45.9 % (42.0-52.0); Hemoglobin 13.6 g/dL (14.0-18.0); Immature Granulocyte Absolute 0.02 K/mm3 (0.00-0.031); Immature Granulocyte Percent A 0.4 % (0-0.5); Lymphocytes Absolute Auto 0.42 K/mm3 (0.9-3.2); Lymphocytes Percent Auto 7.5 % (18.3-44.2); Mean Corpuscular HGB Conc 29.6 g/dl (32-36); Mean Corpuscular Hemoglobin 28.2 pg (26-34); Mean Corpuscular Volume 95.2 fl (80-100); Mean Platelet Volume 12.5 fl (7.4-10.4); Monocytes Absolute Auto 0.3 K/mm3 (0.1-0.6); Monocytes Percent Auto 5.7 % (2.6-8.5); Neutrophils Absolute Auto 4.8 K/mm3 (1.3-6.7); Neutrophils Percent Auto 86.4 % (45.5-73.1); Platelet Count Result 123 k/mm3 (150-375); Red Blood Count 4.82 M/mm3 (4.6-6.20); Red Cell Distribution Width 13.7 % (11.5-14.5); White Blood Count 5.6 K/mm3 (4.5-10.0)
[2021-03-27 16:05] LABS: Alanine Aminotransferase 14 U/L (4-50); Albumin Level 4.1 g/dL (3.5-5.1); Alkaline Phosphatase 100 U/L (38-126); Anion Gap 8 mmol/L (8-16); Aspartate Amino Transferase 21 U/L (17-59); Bilirubin,Total 0.5 mg/dL (0.2-1.3); Blood Urea Nitrogen 28 mg/dL (9-20); Calcium 9.2 mg/dL (8.4-10.2); Carbon Dioxide 26 mmol/L (22-30); Chloride 103 mmol/L (98-107); Estimated CRCL calculation 28 ml/min; Estimated Glomerular Filt Rate 19; Glucose 115 mg/dL (75-110); Lipase 74 U/L (23-300); Potassium 4.9 mmol/L (3.4-5.0); Sodium 137 mmol/L (137-145)
[2021-03-27 16:26] LABS: Troponin I 0.024 ng/mL (0.000-0.034)
--- NOTE | 2021-03-27 16:40 | ECG_ITS ---
Measurements Intervals [place] Rate: 90 P: -2 IN: 206 QRS: -13 QRSD: 102 T: 79 QT: 348 QTc: 428 Interpretive Statements SINUS RHYTHM BORDERLINE R WAVE PROGRESSION, ANTERIOR LEADS NONSPECIFIC T-WAVE ABNORMALITY- HIGH LATERAL LEADS BASELINE ARTIFACT- I, II, AVR, AVF, V3-V6 BORDERLINE ECG Electronically Signed On 03-27-2021 17:34:27 CDT by Rajiv Castro D.O.
[2021-03-27 16:45] LABS: Add Urine Microscopic? YES; Appearance Urine Clear (Clear); Bacteria Urine Trace /hpf; Bilirubin Urine Negative (Negative); Blood Urine Negative (Negative); Color Urine Yellow (Yellow); Glucose Urine UA Negative (Negative); Ketones Urine Negative (Negative); Leukocyte Esterase Ur Negative LEU/UL (Negative); Nitrate Urine Negative (Negative); Protein Urine 3+ mg/dL (Negative); Specific Grav Ur 1.015 (1.001-1.035); Squamous Epithelial Cell Urine Rare /hpf (Few); Urobilinogen Urine Negative mg/dL (<2.0); WBC Urine 0-3 /hpf
[2021-03-27] MEDS: MORPHINE SULFATE (*CRX) 4 MG/ML INJ IV PUSH (16:47)
[2021-03-27] MEDS: LABETALOL HCL INJ 100 MG/20 ML VIAL 20 MG IV PUSH (16:52)
--- NOTE | 2021-03-27 17:08 | PC.NURSE ---
made contact with [facility] to transfer pt to [facility]. harvey was already here to drop off another pt and immediately picked up mr kenny
[2021-03-27 17:13] LABS: INR 1.2; Prothrombin Time 14.8 Seconds (11.1-14.7)
[2021-03-27 17:14] LABS: Partial Thromboplastin Time 30.1 SECONDS (22.3-36.8)
--- NOTE | 2021-03-27 17:57 | PC.NURSE ---
1600 Dr. Abdalla made aware of B/P
== END 2021-03-27 17:35 | disposition short-term general hospital (02) ==
LOC: ANHED 13:43
PROVIDERS: Emergency Provider Emergency Medicine; PCP Internal Medicine
DX: I71.5 Thoracoabdominal aortic aneurysm, ruptured (principal); I12.9 Hypertensive chronic kidney disease with stage 1 through stage 4 chronic kidney disease, or unspecified chronic kidney disease; N18.4 Chronic kidney disease, stage 4 (severe)
CPT/HCPCS: 36415; 74176; 80053; 81001; 83690; 84484; 85025; 85610; 85730; 93005; 96374; 96375; 99291; J2270